=== PATIENT | male | born 1955 | race Caucasian/White ===

== ENCOUNTER 2020-06-20 12:38 | Outpatient (REF) | payer MEDICARE, OTHER, SELFPAY ==
[2020-06-20 13:47] LABS: Creatinine Urine 131.46 mg/dL; Microalbum/Creatinine Ratio Ur 5.3 ug/mg cr
== END 2020-06-20 12:39 | disposition home or self-care (01) ==
LOC: HO.LNP 12:38
PROVIDERS: Visit Provider Family Medicine
DX: I10 Essential (primary) hypertension (principal)
CPT/HCPCS: 82043

== ENCOUNTER 2020-08-10 09:15 | Outpatient (REF) | payer MEDICARE, OTHER, SELFPAY ==
[2020-08-10 11:41] LABS: Prostate Specific Antigen 2.71 ng/mL (<0.05-4.0)
== END 2020-08-10 09:16 | disposition home or self-care (01) ==
LOC: HO.WFDLDS 09:15
PROVIDERS: PCP Family Medicine; Visit Provider Physician Assistant
DX: C61 Malignant neoplasm of prostate (principal); Z12.5 Encounter for screening for malignant neoplasm of prostate
CPT/HCPCS: 36415; 84153

== ENCOUNTER 2020-09-05 14:32 | Outpatient (REF) | payer MEDICARE, OTHER, SELFPAY ==
[2020-09-05 15:17] LABS: Creatinine Urine 124.19 mg/dL; Microalbum/Creatinine Ratio Ur 5.6 ug/mg cr
== END 2020-09-05 14:33 | disposition home or self-care (01) ==
LOC: HO.LNP 14:32
PROVIDERS: Visit Provider Family Medicine
DX: I10 Essential (primary) hypertension (principal)
CPT/HCPCS: 82043

== ENCOUNTER 2020-09-19 08:32 | Day surgery (SDC) | payer MEDICARE, OTHER, SELFPAY ==
[2020-09-11 18:21] VITALS: BMI 25.7
--- NOTE | 2020-09-18 08:59 | HO.ANESPROP2 ---
Documented by User: Jagruti Jessika 09/18/20 09:00 HPI - Anesthesia Eval Consult details Narrative: 65yo M for Colonoscopy PMFSH Active Problems Active Problems: All Active Problems (Updated 09/11/20 @ 18:24 by Kathy Wolfe RN) Essential hypertension (Acute) Hypothyroidism (acquired) (Acute) Screening for colon cancer (Acute) Adult general medical exam (Acute) Chronic back pain (Acute) Chronic headaches (Acute) Elevated PSA (Acute) Past Medical History Medical History Back pain Elevated PSA HTN (hypertension) Hypercholesteremia Hypothyroid Family History Family History Father Throat cancer Mother No problems noted. Brother No problems noted. Sister Lung cancer Sister No problems noted. Son No problems noted. Son No problems noted. Surgical History Surgical History History of colonoscopy History of elbow surgery History of surgery [place] teeth removed Social History Social History Smoking Status: Never smoker Use of substances other than those prescribed or required for medical reasons: Yes Substance Use Frequency: Weekly Advance Directives: No Advance Directives Information Provided: No Advance Directives on File: No Meds Allergies Allergy/AdvReac Type Severity Reaction Status Date / Time bee pollen [BEE STINGS] Allergy Unknown Shortness Verified 09/11/20 18:21 of Breath Home Medications Medication Instructions Recorded Confirmed Last Taken Type diphth,pertus(acell),tetanus 2.5 0.5 ml IM DIRECTED 06/20/20 09/11/20 Unknown History Lf unit-8 mcg-5 Lf/0.5mL IM syringe epinephrine 0.3 mg/0.3 mL 0.3 mg IM ONCE PRN 06/20/20 09/11/20 Unknown History injection, auto-injector finasteride 5 mg tablet 5 mg PO DAILY 06/20/20 09/11/20 Unknown History flu vacc 2020-(63yr 0.5 ml IM DIRECTED 06/20/20 09/11/20 Unknown History up)-MF59C(PF) 60 mcg(15 mcgx4)/0.5 mL IM syringe levothyroxine 25 mcg tablet 25 mcg PO DAILY 06/20/20 09/11/20 Unknown History lisinopril 5 mg tablet 5 mg PO DAILY 06/20/20 09/11/20 09/19/20 History montelukast 10 mg tablet 10 mg PO DAILY 06/20/20 09/11/20 Unknown History tamsulosin 0.4 mg capsule 0.4 mg PO DAILY 06/20/20 09/11/20 Unknown History varicella-zoster glycoE vacc-AS01B 0.5 ml IM DIRECTED 06/20/20 09/11/20 Unknown History adj(PF) 50 mcg/0.5 mL IM susp, kit Exam Exam Date and Time: September 18, 2020 0859 Height,Weight and Vital Signs: Height 6 ft Weight 86.183 kg Assessment and Plan Assessment Anesthesia Assessment: Chart Reviewed Documented by User: Medina Lyons 09/19/20 09:46 PMFSH Past Medical History Medical History Back pain Elevated PSA HTN (hypertension) Hypercholesteremia Hypothyroid Family History Family History Father Throat cancer Mother No problems noted. Brother No problems noted. Sister Lung cancer Sister No problems noted. Son No problems noted. Son No problems noted. Surgical History Surgical History History of colonoscopy History of elbow surgery History of surgery [place] teeth removed Social History Social History Smoking Status: Never smoker Use of substances other than those prescribed or required for medical reasons: Yes Substance Use Frequency: Weekly Advance Directives: No Advance Directives Information Provided: No Advance Directives on File: No Meds Allergies Allergy/AdvReac Type Severity Reaction Status Date / Time bee pollen [BEE STINGS] Allergy Unknown Shortness Verified 09/11/20 18:21 of Breath Home Medications Medication Instructions Recorded Confirmed Last Taken Type diphth,pertus(acell),tetanus 2.5 0.5 ml IM DIRECTED 06/20/20 09/11/20 Unknown History Lf unit-8 mcg-5 Lf/0.5mL IM syringe epinephrine 0.3 mg/0.3 mL 0.3 mg IM ONCE PRN 06/20/20 09/11/20 Unknown History injection, auto-injector finasteride 5 mg tablet 5 mg PO DAILY 06/20/20 09/11/20 Unknown History flu vacc 2020-21(63yr 0.5 ml IM DIRECTED 06/20/20 09/11/20 Unknown History up)-MF59C(PF) 60 mcg(15 mcgx4)/0.5 mL IM syringe levothyroxine 25 mcg tablet 25 mcg PO DAILY 06/20/20 09/11/20 Unknown History lisinopril 5 mg tablet 5 mg PO DAILY 06/20/20 09/11/20 09/19/20 History montelukast 10 mg tablet 10 mg PO DAILY 06/20/20 09/11/20 Unknown History tamsulosin 0.4 mg capsule 0.4 mg PO DAILY 06/20/20 09/11/20 Unknown History varicella-zoster glycoE vacc-AS01B 0.5 ml IM DIRECTED 06/20/20 09/11/20 Unknown History adj(PF) 50 mcg/0.5 mL IM susp, kit Exam Airway Mallampati Class: II TM Dist: >3cm Neck ROM: Full Loose/Missing/Broken Teeth: No Heart: RRR Lungs: CTA Assessment and Plan Assessment Anesthesia Assessment: Anesthesia Plan Discussed and Chart Reviewed Final Anesthetic Review NPO: Yes ASA Class: II Final Preanesthetic Review: Meds/Allgs Chart Reviewed, Consent Obtained/Reviewed and Anes Risks/Benef Reviewed Patient Risk: Low Procedure Risk: Low Anesthetic Plan Anesthetic Plan: MAC: Disposition: Standard PACU
[2020-09-19 09:05] VITALS: BP 126/71; PULSE 72; RESP 16; TEMP 36.7; O2SAT 99
[2020-09-19] MEDS: Lactated Ringers 1,000 ML 100 ML IVCONT (09:38)
[2020-09-19 11:04] VITALS: BP 95/55; PULSE 84; RESP 12; TEMP 36.3; O2SAT 99
--- NOTE | 2020-09-19 11:04 | PM.OP ---
Brief Operative Note Date of Service: 09/19/20 Pre-op diagnosis: Screening Post-op diagnosis: other (Colon polyps) Procedure: Colonoscopy to the cecum with snare polypectomy and biopsy and removal of polyp Surgeon: Az Parrish Anesthesia: MAC Estimated blood loss (mL): 3.0 Pathology: other (A. Proximal ascending colon B. Polyp at 30cm C. Rectal polyp) Condition: stable Disposition: PACU
[2020-09-19 11:23] VITALS: BP 108/65; PULSE 68; RESP 18; TEMP 36.3; O2SAT 98
--- NOTE | 2020-09-19 11:38 | OP_ITS ---
SURGEON: Az Parrish MD INDICATIONS: The patient presents for evaluation of colorectal cancer screening and personal history of tubular adenoma of the colon. Full consent was obtained from him for this, including risks of bleeding and perforation. PREOPERATIVE DIAGNOSIS: POSTOPERATIVE DIAGNOSIS: PROCEDURE PERFORMED: Colonoscopy to cecum with snare polypectomy and biopsy and removal of polyp. ESTIMATED BLOOD LOSS: COMPLICATIONS: ANESTHESIA: Prep medication used, monitored anesthesia care. ASSISTANTS: SPECIMENS: PREOPERATIVE DIAGNOSES: Colorectal cancer screening and personal history of tubular adenoma of the colon. POSTOPERATIVE DIAGNOSES: Colorectal cancer screening, personal history of tubular adenoma of the colon, colon polyps, diverticulosis, and internal hemorrhoids. DESCRIPTION OF PROCEDURE: The patient was placed in the left lateral decubitus position. The digital rectal exam revealed no abnormalities. The Olympus video pediatric colonoscope was entered into the rectum and advanced easily to the cecum. Once in the cecum, I did identify normal-appearing cecal pouch with appendiceal orifice and a normal-appearing ileocecal valve. The entire cecum and ileocecal valve appeared normal. There was transillumination of light deep in the right lower quadrant. The scope was then slowly withdrawn assessing all mucosal surfaces carefully. Preparation was excellent. In the proximal ascending colon, was an approximately 8 mm to 10 mm polyp, which was snared and recovered by suction. The polypectomy site appeared clean, without any sign of residual polyp nor bleeding. At 30 cm, was an approximately 8 mm polyp, which was snared and recovered by suction. The polypectomy site appeared clean, without any sign of residual polyp nor bleeding. In the rectum, was an approximately 3 mm polyp, which was biopsied and completely removed with a cold biopsy forceps. I did not visualize any other polyps, colitis, nor angiodysplasia. There was a mild amount of sigmoid diverticulosis. In the rectum, scope was retroflexed visualizing small internal hemorrhoids, but no other pathology. The rectal mucosa appeared normal. The scope was straightened out and withdrawn from the patient. He tolerated the procedure well and was returned to the recovery area in stable condition. IMPRESSION: 1. Colon polyps, status post snare polypectomy and biopsy removal. 2. Diverticulosis. 3. Internal hemorrhoids. PLAN: The results of the pathology will be checked. I would recommend a repeat colonoscopy in 5 years for further screening. He was advised not to use any aspirin or NSAIDs for 1 week. MD ANOOP Amezquita/WILBER / [id number]
== END 2020-09-19 12:00 | disposition home or self-care (01) ==
PROVIDERS: PCP Family Medicine; Visit Provider Internal Medicine
PROC: 0DJD8ZZ Inspection of Lower Intestinal Tract, Via Natural or Artificial Opening Endoscopic (ICD-10-PCS; CPT 45378; principal; 2020-09-19 09:50)
DX: Z12.11 Encounter for screening for malignant neoplasm of colon (principal); Z86.010 Personal history of colon polyps; D12.2 Benign neoplasm of ascending colon; D12.8 Benign neoplasm of rectum; K63.5 Polyp of colon; K57.30 Diverticulosis of large intestine without perforation or abscess without bleeding; K64.8 Other hemorrhoids; I10 Essential (primary) hypertension; R97.20 Elevated prostate specific antigen [PSA]; Z79.899 Other long term (current) drug therapy
CPT/HCPCS: 45385; 45380; 88305

== ENCOUNTER 2020-12-05 10:20 | Outpatient (REF) | payer MEDICARE, OTHER, SELFPAY ==
[2020-12-05 13:58] LABS: Anion Gap 12 (12-20); Blood Urea Nitrogen 22 mg/dL (9-16); Calcium 9.2 mg/dL (8.4-10.2); Carbon Dioxide 30 mmol/L (22-29); Chloride 103 mmol/L (96-108); Estimated Glomerular Filt Rate > 60; Glucose Random 96 mg/dL (60-115); Potassium 4.4 mmol/L (3.3-5.1); Sodium 141 mmol/L (135-145)
== END 2020-12-05 10:21 | disposition home or self-care (01) ==
LOC: HO.WFDLDS 10:20
PROVIDERS: Visit Provider Family Medicine
DX: Z00.00 Encounter for general adult medical examination without abnormal findings (principal)
CPT/HCPCS: 36415; 80048

== ENCOUNTER 2021-01-05 10:15 | Emergency (ER) | payer MEDICARE, OTHER, SELFPAY ==
--- NOTE | ~2021-01-05 | US_ITS ---
EXAMINATION: US VENOUS ULTRASOUND WITH DOPPLER LOWER EXTREMITY, RIGHT CLINICAL INFORMATION: Atraumatic right thigh pain and redness. COMPARISON: None TECHNIQUE: Ultrasound of the deep veins is performed from the hip to the calf with compression sonography and color and pulse Doppler assessment. Spectral analysis with color-flow imaging is performed. FINDINGS: There is normal venous compression and respiratory variation and augmented flow. The visualized common femoral vein, superficial femoral vein, profunda femoral vein, popliteal vein, and the trifurcation region shows no evidence of deep venous thrombosis. There is no significant popliteal fossa cyst. Positive superficial occlusive thrombus is seen in the right greater saphenous vein from the level of the saphenofemoral junction to the distal thigh. US/US venous duplex LE RT IMPRESSION: 1. No evidence of deep venous thrombosis in the visualized veins of the right lower extremity. 2. Positive occlusive thrombus in the right greater saphenous vein. There is some echogenic, components suggesting chronic thrombus. The patient does have history of previous greater saphenous venoseal. Correlate with patient history.
[2021-01-05 10:37] VITALS: BP 140/73; PULSE 60; RESP 18; TEMP 36.5; O2SAT 96; BMI 25.5
--- NOTE | 2021-01-05 11:27 | ED.SKABFB ---
HPI - Skin/Abscess/Foreign Bdy General Chief complaint: Extremity Problem Stated complaint: flobitis Time Seen by Provider: 01/05/21 10:37 Source: patient Mode of arrival: ambulatory Limitations: no limitations History of Present Illness HPI narrative: 65-year-old male with a past medical history of hypertension, hypercholesterolemia, hypothyroidism, elevated PSA, chronic headaches and back pain presenting to the ED with complaints of redness to right upper inner thigh for the past 4 days worse today. Reports recently he has been gardening. Reports he was seen at the [facility] and was referred here for an ultrasound to rule out DVT. MD complaint: other (Erythema to right inner thigh) Onset (ago): day(s) (Four days) Tetanus up to date: unsure Location: [facility] Severity: mild Severity scale (1-10): 1 Quality: aching Pain Consistency: constant Relieving factors: none Exacerbating factors: palpation Context: none Associated symptoms: denies other symptoms Treatments prior to arrival: none Related Data Home Medications Medication Instructions Recorded Confirmed diphth,pertus(acell),tetanus 2.5 0.5 ml IM DIRECTED 06/20/20 09/11/20 Lf unit-8 mcg-5 Lf/0.5mL IM syringe epinephrine 0.3 mg/0.3 mL 0.3 mg IM ONCE PRN 06/20/20 09/11/20 injection, auto-injector finasteride 5 mg tablet 5 mg PO DAILY 06/20/20 09/11/20 flu vacc 2020-21(63yr 0.5 ml IM DIRECTED 06/20/20 09/11/20 up)-MF59C(PF) 60 mcg(15 mcgx4)/0.5 mL IM syringe montelukast 10 mg tablet 10 mg PO DAILY 06/20/20 09/11/20 varicella-zoster glycoE vacc-AS01B 0.5 ml IM DIRECTED 06/20/20 09/11/20 adj(PF) 50 mcg/0.5 mL IM susp, kit Previous Rx's Medication Instructions Recorded hydrocodone 5 mg-acetaminophen 325 1 tab PO BEDTIME PRN 30 Days #10 06/28/20 mg tablet tab topiramate 50 mg tablet 50 mg PO DAILY 30 Days #30 tab 09/05/20 tamsulosin 0.4 mg capsule 0.8 mg PO BEDTIME #90 cap 10/19/20 levothyroxine 25 mcg tablet 25 mcg PO DAILY #90 tab 11/05/20 butalbital 50 mg-acetaminophen 325 1 tab PO .Once per day PRN 30 Days 12/05/20 mg tablet #10 tab lisinopril 5 mg tablet 5 mg PO DAILY 90 Days #90 tab 12/05/20 cephalexin 500 mg PO BID 10 Days #20 cap 01/05/21 comp.stocking,thigh,long,large #2 ea 01/05/21 doxycycline hyclate 100 mg PO BID 10 Days #20 tab 01/05/21 Allergies Allergy/AdvReac Type Severity Reaction Status Date / Time bee pollen [BEE STINGS] Allergy Unknown Shortness Verified 01/05/21 10:37 of Breath Review of Systems Review of Systems: Constitutional : No Weight loss, No Fever, No Chills, No Night Sweats, No Fatigue, NoMalaise ENT/Mouth: No ear pain, No sore throat, No Difficulty swallowing Cardiovascular : No Chest Pain, No SOB, No Dyspnea on Exertion, No Orthopnea, NoEdema, No Palpitations Respiratory : No Cough, No Sputum, No Wheezing, No Dyspnea Gastrointestinal : No Nausea, No Vomiting, No abdominal pain, No Diarrhea, No blood streaked emesis, No coffee-ground emesis, No gross hematemesis, No blood streak stool, No gross hematochezia, No Melena Genitourinary : No irregular bleeding, No Dysuria, No Urinary Frequency, No Hematuria,No Urinary Incontinence, No Urgency, No Flank Pain Musculoskeletal : No joint pain, No Myalgias, No Joint Swelling Skin : Positive erythema to right inner thigh, No Skin Lesions, No rash Neuro : No Weakness, No Numbness, No Paresthesias, No Loss of Consciousness, NoDizziness, No Headache Psych : No Social Issues, Heme/Lymph: No Bruising, No Bleeding,No Lymphadenopathy Endocrine : No Polyuria, No Polydipsia, No Temperature Intolerance Yes all other systems are reviewed and are negative [facility] Past Medical History Attestation statement: The following information was validated with the patient. Medical History Back pain Elevated PSA HTN (hypertension) Hypercholesteremia Hypothyroid Surgical History History of colonoscopy History of elbow surgery History of surgery [place] teeth removed Family History Family History Father Throat cancer Mother Cancer of anus Brother Lung cancer Prostate cancer Sister Lung cancer Sister No problems noted. Son No problems noted. Son No problems noted. Social History Social History Advance Directives: No Advance Directives Information Provided: No Physical Exam Vital Signs: Vital Signs: Last Vital Signs Temp 97.7 F 01/05/21 10:37 Pulse 60 01/05/21 10:37 Resp 18 01/05/21 10:37 BP 140/73 H 01/05/21 10:37 Pulse Ox 96 01/05/21 10:37 Body Mass Index 25.5 vital signs have been reviewed as normal and appeared to be correct. Blood pressure normal. Heart rate normal. Respiration rate normal. Temperature normal. Oxygen saturation normal. Appearance: Alert. Oriented X3. No acute distress. Head: Normal external exam. Normocephalic. Atraumatic. Eyes: PERRLA. EOMI. Conjunctiva and sclera normal. Eyelids normal. ENT: Pharynx normal. Uvula midline. Moist mucous membranes. Neck: Normal inspection. Neck supple. FROM. No adenopathy. Thyroid Normal. No meningeal signs. No neck mass noted. CVS: Normal heart rate and rhythm. Heart sound normal. Pulses normal throughout. No murmurs/rales/gallops. Respiratory: No respiratory distress. Painless inspiration. Breath sounds normal. No wheezes/rales/rhonchi noted. Chest nontender. No accessory muscle usage noted or decreased air movement noted. Back: Full range of motion noted. No rashes/lesion/induration/fluctuance or signs of infection noted. Skin: To right medial thigh patient has a circular erythematous macular area that is tender to palpation and warm to touch. The rest of the Skin is warm and dry. Normal skin color. Normal skin turgor. No rashes/lesions/lacerations noted. Extremities: No lower extremity edema. No calf tenderness is noted. Extremities exhibit normal range of motion. Extremities nontender. Neuro: Oriented X 3. No motor deficit. No sensory deficit. Reflexes normal. Normal steady gait. No focal neuro deficits noted. Vascular: + radial pulses/+ 2 distal pedal pulses/+2 dorsalis pedis b/l. Normal cap refill. No cyanosis noted to upper extremity nails and lower extremity toes nails. Course Course Course Narrative: 10:50am - 65-year-old male with a past medical history of hypertension, hypercholesterolemia, hypothyroidism, elevated PSA, chronic headaches and back pain presenting to the ED with complaints of redness to right upper inner thigh for the past 4 days worse today. Reports recently he has been gardening. Reports he was seen at the [facility] and was referred here for an ultrasound to rule out DVT. Plan: Ultrasound of right lower extremity to evaluate for possible DVT if negative will DC home with antibiotic for cellulitis infection instructions to return if any new or worsening symptoms follow-up with primary care provider. Patient understands agrees with this plan. Reevaluation(s) Reevaluation #1: - ultrasound of right lower extremity revealed positive occlusive thrombosis in the right greater saphenous vein which may be chronic. No evidence of a DVT. Therefore explained to the patient that I want to treat him for a cellulitic infection due to he reports he was gardening and thought he had a bite and that he should also apply warm compresses and have a repeat ultrasound in 7-10 days by his PCP or Dr. Lazar the vascular surgeon. I gave a copy of the ultrasound results to the patient he understands agrees with this plan. Instructions to return if any new or worsening symptoms. Time: 13:46 MDM - Skin/Abscess/Foreign Bdy Medical Records Attestation: I reviewed the patient's medical records. Imaging Data Venous Doppler of right lower extremity: Attestation: I personally reviewed and interpreted this imaging study as follows: Radiologist's impression: FINDINGS: There is normal venous compression and respiratory variation and augmented flow. The visualized common femoral vein, superficial femoral vein, profunda femoral vein, popliteal vein, and the trifurcation region shows no evidence of deep venous thrombosis. There is no significant popliteal fossa cyst. Positive superficial occlusive thrombus is seen in the right greater saphenous vein from the level of the saphenofemoral junction to the distal thigh. US/US venous duplex LE RT IMPRESSION: 1. No evidence of deep venous thrombosis in the visualized veins of the right lower extremity. 2. Positive occlusive thrombus in the right greater saphenous vein. There is some echogenic, components suggesting chronic thrombus. The patient does have history of previous greater saphenous venoseal. Correlate with patient history. Discharge Plan Discharge Clinical Impression: Thrombosis of right saphenous vein, Cellulitis Patient Disposition: Home, Self-Care Instructions: Cellulitis (ED), Superficial Thrombophlebitis (ED) Additional Instructions: We are placing you on antibiotics for a possible skin infection although you should have a repeat ultrasound in 7-10 days by your PCP or Dr. Lazar the vascular surgeon. Return if any new or worsening symptoms. Please apply warm compresses Prescriptions: New doxycycline hyclate 100 mg tablet 100 mg PO BID 10 Days Qty: 20 RF: 0 cephalexin 500 mg capsule 500 mg PO BID 10 Days Qty: 20 RF: 0 (DME) comp.stocking,thigh,long,large Misc See Rx Instructions .ROUTE .MEDSUPPLY Qty: 2 RF: 0 No Action hydrocodone-acetaminophen 5-325 mg tablet 1 tab PO BEDTIME PRN (Reason: pain) 30 Days Qty: 10 RF: 0 tamsulosin 0.4 mg capsule 0.8 mg PO BEDTIME Qty: 90 RF: 1 levothyroxine [Synthroid] 25 mcg tablet 25 mcg PO DAILY Qty: 90 RF: 2 lisinopril 5 mg tablet 5 mg PO DAILY 90 Days Qty: 90 RF: 3 butalbital-acetaminophen 50-325 mg tablet 1 tab PO .Once per day PRN (Reason: headache) 30 Days Qty: 10 RF: 1 montelukast 10 mg tablet 10 mg PO DAILY RF: 0 Fluad Quad 2020-21(65y up)(PF) 60 mcg (15 mcg x 4)/0.5 mL syringe 0.5 ml IM DIRECTED RF: 0 Boostrix Tdap 2.5-8-5 Lf-mcg-Lf/0.5mL syringe 0.5 ml IM DIRECTED RF: 0 finasteride 5 mg tablet 5 mg PO DAILY RF: 0 Shingrix (PF) 50 mcg/0.5 mL suspension for reconstitution 0.5 ml IM DIRECTED RF: 0 epinephrine 0.3 mg/0.3 mL auto-injector 0.3 mg IM ONCE PRN (Reason: Allergic Reaction) RF: 0 topiramate 50 mg tablet 50 mg PO DAILY 30 Days Qty: 30 RF: 2 Referrals: Gabriele Joiner MD [Primary Care Provider] - 2 days Ananda Lazar MD [Physician] - 2 days Print Language: Latvian
== END 2021-01-05 14:11 | disposition home or self-care (01) ==
PROVIDERS: Emergency Provider Emergency Medicine Emergency Medical Services; PCP Family Medicine
DX: I82.811 Embolism and thrombosis of superficial veins of right lower extremity (principal); L03.115 Cellulitis of right lower limb; R60.0 Localized edema; I10 Essential (primary) hypertension; Z79.899 Other long term (current) drug therapy
CPT/HCPCS: 93971; 99283

== ENCOUNTER → 2021-01-15 10:08 | Outpatient (BNVA) | payer MEDICARE, OTHER, SELFPAY | PROVIDERS: PCP Family Medicine; Visit Provider Surgery Vascular Surgery | DX: I83.11 Varicose veins of right lower extremity with inflammation (principal) | CPT/HCPCS: 99212 ==

== ENCOUNTER → 2021-02-01 10:00 | Outpatient (BNVA) | payer MEDICARE, OTHER, SELFPAY | PROVIDERS: PCP Family Medicine; Visit Provider Surgery Vascular Surgery | DX: I83.11 Varicose veins of right lower extremity with inflammation (principal) | CPT/HCPCS: 37765 ==

== ENCOUNTER → 2021-02-12 09:11 | Outpatient (BNVA) | payer MEDICARE, OTHER, SELFPAY | PROVIDERS: PCP Family Medicine; Visit Provider Surgery Vascular Surgery | DX: I83.11 Varicose veins of right lower extremity with inflammation (principal) | CPT/HCPCS: 99212 ==

== ENCOUNTER 2021-03-26 08:32 | Outpatient (REF) | payer MEDICARE, OTHER, SELFPAY ==
--- NOTE | 2021-03-26 13:11 | MHC.AU.ANR ---
Adult Audiological Evaluation Date of Visit: 03/26/21 Reason for Appointment: Audiological re-evaluation to monitor the status of Mr. Moody's hearing loss. He was previously seen here and diagnosed with a bilateral, high-frequency, sensorineural hearing loss. His hearing in the right ear is better than the left. He was considered a borderline candidate for amplification and deferred hearing aids at that time. He notes some difficulties understanding speech. Mr. Moody denies any significant changes to his hearing or medical history since his last visit. Does patient feel they have a hearing loss?: Yes If Yes, Which Ear?: Both Ears Has hearing been tested previously?: Yes [place] [facility] [place] hearing sloping to a mild to moderate sensorineural hearing loss bilaterally. Ear History: Bothersome Tinnitus/Ringing/Noises in Ears: Both Ears Medical History: Medical History: Prostate cancer, hypothyroid, migraines Otoscopy: Right Ear: Unremarkable Left Ear: Unremarkable Tympanometry: Tympanometry performed due to: To assess integrity of the middle ear system Right Ear: Hypercompliant Middle Ear System (Type Ad) Left Ear: Hypercompliant Middle Ear System (Type Ad) Hearing Evaluation: Transducer(s) Used: Insert Earphones, Bone Conduction Method: Conventional Audiometry Stimuli Used: Pure Tones Right Ear: Description of Hearing: Normal hearing from 250-1000 Hz, sloping to a mild to moderately-severe sensorineural hearing loss from 5474-4625 Hz. Left Ear: Description of Hearing: Normal hearing from 250-1000 Hz, sloping to a mild to moderately-severe sensorineural hearing loss from 6382-9141 Hz. Hearing in the left ear is worse than the right ear by 10 dBHL at 2000 Hz and 20 dBHL at 4000 Hz. Speech Recognition Threshold (SRT): Method Used: Monitored Live Voice Stimuli Used: Spondee Words Right Ear: 15 dBHL Left Ear: 15 dBHL Word Discrimination: Method: Recorded Lists Word Lists Used: NU-6 Right Ear: 96% at 60 dBHL Left Ear: 100% at 60 dBHL Comparison: Compared to the most recent evaluation: Slight decrease in hearing for high-frequencies bilaterally. Recommendations: Audiological re-evaluation in one year. Discussed hearing aid candidacy and advised that he continues to be a borderline candidate for hearing aids. He chose to defer hearing aids at this time. Diagnosis: Primary Diagnosis: H90.3 Bilateral Sensorineural Hearing Loss Secondary Diagnosis: H93.13 Tinnitus, Bilateral Services Performed: Services Performed: Comprehensive Audiological Evaluation (CPT 53334) Tympanometry (CPT 30914) Signature: Provider: Donis Prakash, CCC-A
== END 2021-03-26 08:33 | disposition home or self-care (01) ==
LOC: HO.SH 08:32
PROVIDERS: Visit Provider Family Medicine
DX: H90.3 Sensorineural hearing loss, bilateral (principal); H93.13 Tinnitus, bilateral
CPT/HCPCS: 92557; 92567

== ENCOUNTER 2021-06-03 12:18 | Outpatient (REF) | payer MEDICARE, OTHER, SELFPAY ==
[2021-06-03 14:49] LABS: Prostate Specific Antigen 1.68 ng/mL (<0.05-4.0)
== END 2021-06-03 12:19 | disposition home or self-care (01) ==
LOC: HO.WFDLDS 12:18
PROVIDERS: Visit Provider Physician Assistant Surgical
DX: Z12.5 Encounter for screening for malignant neoplasm of prostate (principal); C61 Malignant neoplasm of prostate
CPT/HCPCS: 36415; 84153

== ENCOUNTER 2021-07-03 08:50 | Outpatient (REF) | payer MEDICARE, OTHER, SELFPAY ==
[2021-07-03 11:44] LABS: Alanine Aminotransferase 21 U/L (0-40); Albumin Level 4.1 g/dL (3.5-5.0); Alkaline Phosphatase 68 U/L (39-117); Anion Gap 9 (12-20); Aspartate Amino Transferase 22 U/L (5-37); Bilirubin Total 0.5 mg/dL (0.0-1.0); Blood Urea Nitrogen 18 mg/dL (9-16); Calcium 9.3 mg/dL (8.4-10.2); Carbon Dioxide 30 mmol/L (22-29); Chloride 105 mmol/L (96-108); Cholesterol 178 mg/dL; Estimated Glomerular Filt Rate > 60; Glucose Fasting 106 mg/dL (60-99); HDL Cholesterol 51 mg/dL; LDL Cholesterol Calculated 113 mg/dl; Potassium 4.3 mmol/L (3.3-5.1); Sodium 140 mmol/L (135-145); Total Protein 6.7 g/dL (6.5-8.0); Triglycerides 72 mg/dL
[2021-07-03 12:04] LABS: TSH reflex Free T4 6.58 uIU/mL (0.32-4.0)
[2021-07-03 12:46] LABS: Free T4 (Free Thyroxine) 0.89 ng/dL (0.71-1.85)
== END 2021-07-03 08:51 | disposition home or self-care (01) ==
LOC: HO.WFDLDS 08:50
PROVIDERS: PCP Family Medicine; Visit Provider Family Medicine
DX: Z00.00 Encounter for general adult medical examination without abnormal findings (principal)
CPT/HCPCS: 36415; 80053; 80061; 84439; 84443

== ENCOUNTER 2021-07-12 08:06 | Outpatient (REF) | payer MEDICARE, OTHER, SELFPAY ==
[2021-07-12 11:18] LABS: Free T4 (Free Thyroxine) 0.91 ng/dL (0.71-1.85); Thyroid Stimulating Hormone 4.68 uIU/mL (0.32-4.0)
[2021-07-12 13:58] LABS: Estimated Average Glucose 117 mg/dL; Hemoglobin A1c % 5.7 %
[2021-07-14 01:51] LABS: Triiodothyronine T3 Total 109 ng/dL (76-181)
== END 2021-07-12 08:07 | disposition home or self-care (01) ==
LOC: HO.WFDLDS 08:06
PROVIDERS: Visit Provider Family Medicine
DX: E03.9 Hypothyroidism, unspecified (principal); R79.89 Other specified abnormal findings of blood chemistry; R73.01 Impaired fasting glucose
CPT/HCPCS: 36415; 83036; 84439; 84443; 84480

== ENCOUNTER 2021-10-07 10:24 | Outpatient (REF) | payer MEDICARE, OTHER, SELFPAY ==
[2021-10-12 08:21] LABS: SARS COV2 IgG Negative (Negative)
== END 2021-10-07 10:25 | disposition home or self-care (01) ==
LOC: HO.WFDLDS 10:24
PROVIDERS: Visit Provider Family Medicine
DX: Z01.84 Encounter for antibody response examination (principal); Z86.19 Personal history of other infectious and parasitic diseases
CPT/HCPCS: 36415; 86769

== ENCOUNTER 2021-10-29 11:01 | Outpatient (REF) | payer MEDICARE, OTHER, SELFPAY ==
[2021-10-29 13:58] LABS: TSH reflex Free T4 3.55 uIU/mL (0.32-4.0)
== END 2021-10-29 11:02 | disposition home or self-care (01) ==
LOC: HO.WFDLDS 11:01
PROVIDERS: Visit Provider Family Medicine
DX: Z00.00 Encounter for general adult medical examination without abnormal findings (principal)
CPT/HCPCS: 36415; 84443

== ENCOUNTER 2021-11-15 10:37 | Outpatient (REF) | payer MEDICARE, OTHER, SELFPAY ==
[2021-11-16 06:21] LABS: SARS-COV-2 IgG Spike, Semi-Qnt >150.00 index (<1.00)
== END 2021-11-15 10:38 | disposition home or self-care (01) ==
LOC: HO.WFDLDS 10:37
PROVIDERS: Visit Provider Family Medicine
DX: Z20.822 Contact with and (suspected) exposure to COVID-19 (principal)
CPT/HCPCS: 36415; 86769

== ENCOUNTER 2022-04-23 16:55 | Outpatient (REF) | payer MEDICARE, OTHER, SELFPAY ==
--- NOTE | ~2022-04-23 | US_ITS ---
EXAMINATION: US VENOUS ULTRASOUND WITH DOPPLER LOWER EXTREMITY, RIGHT CLINICAL INFORMATION: Varicose veins COMPARISON: 01/05/2021 TECHNIQUE: Ultrasound of the deep veins is performed from the hip to the calf with compression sonography and color and pulse Doppler assessment. Spectral analysis with color-flow imaging is performed. FINDINGS: There is normal venous compression and respiratory variation and augmented flow. The visualized common femoral vein, superficial femoral vein, profunda femoral vein, popliteal vein, and the trifurcation region shows no evidence of deep venous thrombosis. There is no significant popliteal fossa cyst. 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 US/US venous duplex LE RT IMPRESSION: No DVT demonstrated in the right lower extremity.
== END 2022-04-23 16:56 | disposition home or self-care (01) ==
LOC: HO.US 16:55
PROVIDERS: PCP Family Medicine; Visit Provider Hospitalist
DX: I83.11 Varicose veins of right lower extremity with inflammation (principal)
CPT/HCPCS: 93971

== ENCOUNTER → 2022-05-05 14:41 | Outpatient (BNVA) | payer MEDICARE, OTHER, SELFPAY | PROVIDERS: PCP Family Medicine; Visit Provider Physician Assistant | DX: S86.111A Strain of other muscle(s) and tendon(s) of posterior muscle group at lower leg level, right leg, initial encounter (principal) | CPT/HCPCS: 99202 ==

== ENCOUNTER → 2022-06-16 08:52 | Outpatient (BNVA) | payer MEDICARE, OTHER, SELFPAY | PROVIDERS: PCP Family Medicine; Visit Provider Physician Assistant | DX: S86.111D Strain of other muscle(s) and tendon(s) of posterior muscle group at lower leg level, right leg, subsequent encounter (principal) | CPT/HCPCS: 99212 ==

== ENCOUNTER 2022-06-23 08:07 | Outpatient (REF) | payer MEDICARE, OTHER, SELFPAY ==
[2022-06-23 11:36] LABS: Appearance Urine Cloudy; Color Urine Yellow; Glucose Urine UA Negative (Negative); Leukocyte Esterase Urine Negative (Negative); Nitrite Urine Negative (Negative); PH 7.5 (5.0-9.0); Specific Gravity - Urine 1.015 (1.005-1.025); Urine Blood Negative (Negative); Urine Ketones Negative (Negative); Urine Protein Negative (Neg-Trace)
[2022-06-23 12:23] LABS: Alanine Aminotransferase 29 U/L (0-40); Albumin Level 4.1 g/dL (3.5-5.0); Alkaline Phosphatase 77 U/L (39-117); Anion Gap 10 (12-20); Aspartate Amino Transferase 23 U/L (5-37); Bilirubin Total 0.4 mg/dL (0.0-1.0); Blood Urea Nitrogen 22 mg/dL (9-16); Calcium 9.1 mg/dL (8.4-10.2); Carbon Dioxide 28 mmol/L (22-29); Chloride 105 mmol/L (96-108); Cholesterol 166 mg/dL; Estimated Glomerular Filt Rate > 60; Free T4 (Free Thyroxine) 0.92 ng/dL (0.71-1.85); Glucose Fasting 102 mg/dL (60-99); HDL Cholesterol 51 mg/dL; LDL Cholesterol Calculated 98 mg/dl; Potassium 3.9 mmol/L (3.3-5.1); Prostate Specific Antigen Scr 1.68 ng/mL (<0.05-4.0); Sodium 139 mmol/L (135-145); Thyroid Stimulating Hormone 4.88 uIU/mL (0.32-4.0); Total Protein 6.6 g/dL (6.5-8.0); Triglycerides 89 mg/dL
[2022-06-23 12:25] LABS: Microalbumin Urine < 5.0 mg/L
[2022-06-24 08:47] LABS: Triiodothyronine T3 Total 103 ng/dL (76-181)
== END 2022-06-23 08:08 | disposition home or self-care (01) ==
LOC: HO.WFDLDS 08:07
PROVIDERS: Visit Provider Family Medicine
DX: Z00.00 Encounter for general adult medical examination without abnormal findings (principal); Z12.5 Encounter for screening for malignant neoplasm of prostate; E03.9 Hypothyroidism, unspecified; I10 Essential (primary) hypertension
CPT/HCPCS: 36415; 80053; 80061; 81003; 82043; 84153; 84439; 84443; 84480

== ENCOUNTER 2022-10-13 09:37 | Outpatient (REF) | payer MEDICARE, OTHER, SELFPAY ==
[2022-10-13 12:35] LABS: Anion Gap 9 (12-20); Blood Urea Nitrogen 21 mg/dL (9-16); Calcium 8.5 mg/dL (8.4-10.2); Carbon Dioxide 29 mmol/L (22-29); Chloride 108 mmol/L (96-108); Estimated Glomerular Filt Rate > 60; Glucose Fasting 97 mg/dL (60-99); Potassium 4.3 mmol/L (3.3-5.1); Sodium 142 mmol/L (135-145)
[2022-10-13 12:55] LABS: Free T4 (Free Thyroxine) 0.91 ng/dL (0.71-1.85)
[2022-10-14 20:03] LABS: Triiodothyronine T3 Total 119 ng/dL (76-181)
== END 2022-10-13 09:38 | disposition home or self-care (01) ==
LOC: HO.WFDLDS 09:37
PROVIDERS: Visit Provider Family Medicine
DX: E78.00 Pure hypercholesterolemia, unspecified (principal); E03.9 Hypothyroidism, unspecified
CPT/HCPCS: 36415; 80048; 84439; 84443; 84480

== ENCOUNTER 2023-02-11 08:57 | Outpatient (AMB) | payer MEDICARE, OTHER, SELFPAY ==
[2023-02-11 09:00] VITALS: BP 122/76; PULSE 52; O2SAT 98; BMI 25.7
--- NOTE | 2023-02-11 09:00 | MHC.PC.OV ---
Vital Signs 02/11/23 09:00 Height 5 ft 11 in Weight 184 lb 8 oz BMI 25.7 BP 122/76 Blood Pressure Location Lt brachial Position Sitting Pulse 52 Pulse Source Pulse Oximeter Pulse Oximetry (%) 98 Oxygen Delivery Method Room Air Intake Visit Reasons: f/u HTN & PreDM Intake Note: Patient is here to follow up on hypertension and PreDM. Patient is having reaction to allergy shot on right arm. Allergies bee pollen [BEE STINGS] Allergy (Unknown, Verified 02/11/23 09:04) Shortness of Breath Medication List - Last Reconciled 02/11/23 by Gabriele Joiner MD butalbital-acetaminophen 50-325 mg 1 tab PO DAILY PRN 30 days comp.stocking,thigh,long,large As directed finasteride 5 mg PO DAILY levothyroxine (Synthroid) 37.5 mcg (1.5 x 25 mcg) PO DAILY 90 days lisinopril 5 mg PO DAILY 90 days montelukast 10 mg PO DAILY nirmatrelvir-ritonavir 300 mg (150 mg x 2)-100 mg (Paxlovid) take TWO 150 mg tablets of nirmatrelvir with ONE 100 mg tablet of ritonavir twice daily for 5 days PO tamsulosin 0.8 mg (2 x 0.4 mg) PO BEDTIME topiramate 25 mg PO DAILY 30 days tramadol 50 mg PO BID PRN 7 days Tobacco use date assessed: 02/11/23 Fall risk assessment: No Falls in past year Last assessed Fall Risk: 02/11/23 Dental Screening Dental Screen Date: 02/11/23 Did you have a dental visit in the last 12 months?: Yes Did you have a dental problem in the last 6 months where you did not have access to dental care?: No Was dental information given to patient?: No HPI f/u HTN & PreDM HPI Details 67 y/o male presents to f/u hypertension, hypothyroidism and pre-diabetes. Last A1c 10/13/22 was 5.7%. Had advised lifestyle changes. A1c today 02/11/23 is 5.7%. Blood pressure today is 122/76. He is on lisinopril 5mg daily. No recent labs to review for his thyroid levels. His thyroid levels were fine in October. He reports reactions to an allergy shot on his R arm. HPI Comments History of Present Illness Details Documentation assistance for Gabriele Joiner MD, was provided by Kristian Rivas,? Yarding Supervisor on 02/11/2023 9:35 AM EST. I, Dr. Joiner, have read, observed, and verified documentation.? [facility], [facility] Medical History Back pain Elevated PSA HTN (hypertension) Hypercholesteremia Hypothyroid Surgical History History of colonoscopy History of elbow surgery History of surgery [place] teeth removed Family History Father Throat cancer Mother Cancer of anus Brother Lung cancer Prostate cancer Sister Lung cancer Sister No problems noted. Son No problems noted. Son No problems noted. Other Mental health disorder Substance use disorder Social History Housing: House Alcohol intake: current Alcohol intake frequency: holidays/special occasions only Patient Tobacco Use Status: Former Tobacco user e-Cigarette/Vaping Use: Never Used Second Hand Smoke Exposure: No service: No Current occupational status: retired Current occupational exposures/hazards: No Cognitive needs: No Hearing needs: No Vision needs: Yes (Glasses) Questionnaire PHQ-9 Over the last 2 weeks, how often have you been bothered by any of the following problems? 1. Little interest or pleasure in doing things: not at all 2. Feeling down, depressed, or hopeless: not at all 3. Trouble falling or staying asleep, or sleeping too much: not at all 4. Feeling tired or having little energy: not at all 5. Poor appetite or overeating: not at all 6. Feeling bad about yourself - or that you are a failure or have let yourself or your family down: not at all 7. Trouble concentrating on things, such as reading the newspaper or watching television: not at all 8. Moving or speaking so slowly that other people could have noticed. Or the opposite - being so fidgety or restless that you have been moving around a lot more than usual: not at all 9. Thoughts that you would be better off or of hurting yourself in some way: not at all Total score: 0 Depression Screening Interpretation: Negative Source: Developed by Drs. Az Posada, Karen Sexton, Brandin Gomes and colleagues, with an educational rebecca from [employer]. Thrive Questionnaire Date Thrive assessed: 08/14/22 SY-7 AMB Questionnaire SY-7 Date SY - 7 assessed: 04/03/22 Source: Developed by Drs. Az Posada, Karen Sexton, Brandin Gomes and colleagues, with an educational rebecca from [employer]. Review of Systems Const Denies chills, Denies fatigue, Denies fever(s), Denies headache(s) and Denies weakness ENT Denies dizziness and Denies headache(s) Card Denies chest pain, Denies lightheadedness, Denies dyspnea and Denies other (Palpitations) Resp Denies cough, Denies dyspnea, Denies wheezing and Denies other ( shortness of breath) Musc Denies numbness and Denies tingling Neuro Denies dizziness, Denies headache(s), Denies numbness, Denies tingling, Denies paresthesias and Denies weakness Psych Denies anxiety and Denies depression Endo Denies fatigue Aller/Immun Denies wheezing Physical exam (Primary Care) Vital Signs: Last Vital Signs Pulse 52 02/11/23 09:00 BP 122/76 02/11/23 09:00 Pulse Ox 98 02/11/23 09:00 Oxygen Delivery Method Room Air 02/11/23 09:00 BMI result Body Mass Index 25.7 Tobacco/Smoking Status: Tobacco use Status Tobacco use date assessed 02/11/23 02/11/23 09:07 Patient Tobacco Use Status Former Tobacco user 02/11/23 09:03 e-Cigarette/Vaping Use Never Used 02/11/23 09:03 PHQ-9: PHQ-9 Score PHQ-9: Total score 0 02/11/23 09:38 Depression Screening Interpretation: Negative Thrive Assessment: Date of Thrive Assessment Date Thrive assessed 08/14/22 02/11/23 09:03 Const General: no acute distress and well developed Nutritional Appearance: well nourished Orientation/consciousness: patient oriented x3 HENMT Head: Yes normocephalic and Yes atraumatic Eyes General: appearance normal, both eyes and all related structures Pupils: Equal, round and reactive pupils present EOM: EOMs intact bilaterally Resp Effort & Inspection: normal respiratory effort Auscultation: clear to auscultation bilaterally Cardio Rate: regular rate Rhythm: regular rhythm Heart sounds: S1 normal heart sound present, S2 normal heart sound present, no gallops, no murmurs and no rubs Neuro General: patient oriented x3 and gait normal Cranial nerves: Yes Equal, round and reactive pupils present Psych Affect: normal affect Results AMB Hemoglobin A1c AMB Hemoglobin A1c 5.7 % Last Edit by Ne Vanegas on 02/11/23 09:53 Assessment and Plan Assessment & Plan (1) Essential hypertension: Code(s): I10 - Essential (primary) hypertension Plan: Blood pressure appears well controlled. Goal is less than 140/90 Continue current medication (2) Pre-diabetes: Code(s): R73.03 - Prediabetes Plan: A1c again 5.7% which is early pre diabetes Again advised lifestyle changes including a diet lower in sugars and starches Continue exercise and weight control (3) Allergy injection reaction: Code(s): T80.89XA - Other complications following infusion, transfusion and therapeutic injection, initial encounter; T45.0X5A - Adverse effect of antiallergic and antiemetic drugs, initial encounter Plan: Mild hives reaction after allergy shots. Use Benadryl Let conference services manager no so they can adjust therapy. Orders: Orders Thyroid Stimulating Hormone Today E03.9 - Hypothyroidism, unspecified Triiodothyronine T3 Total Today E03.9 - Hypothyroidism, unspecified Free T4 (Free Thyroxine) Today E03.9 - Hypothyroidism, unspecified Medications: New diphenhydramine HCl (Benadryl Allergy) 50 mg (2 x 25 mg) PO TID 3 days PRN 10 tabs 0RF allergy symptoms Coding Level of Care Code Est Pt Level 4 (21419) Diagnoses Essential hypertension I10 Pre-diabetes R73.03 Allergy injection reaction T80.89XA; T45.0X5A
== END 2023-02-11 09:55 | disposition home or self-care (01) ==
PROVIDERS: PCP Family Medicine; Visit Provider Family Medicine
DX: I10 Essential (primary) hypertension (principal); R73.03 Prediabetes; T80.89XA Other complications following infusion, transfusion and therapeutic injection, initial encounter; T45.0X5A Adverse effect of antiallergic and antiemetic drugs, initial encounter
CPT/HCPCS: 99214

== ENCOUNTER 2023-05-12 09:33 | Outpatient (REF) | payer MEDICARE, OTHER, SELFPAY ==
[2023-05-13 23:37] LABS: Triiodothyronine T3 Total 118 ng/dL (76-181)
== END 2023-05-12 09:34 | disposition home or self-care (01) ==
LOC: HO.WFDLDS 09:33
PROVIDERS: Visit Provider Family Medicine
DX: E03.9 Hypothyroidism, unspecified (principal)
CPT/HCPCS: 36415; 84439; 84443; 84480

== ENCOUNTER 2023-05-13 09:30 | Outpatient (AMB) | payer MEDICARE, OTHER, SELFPAY ==
[2023-05-13 09:36] VITALS: BP 126/72; PULSE 59; O2SAT 98; BMI 25.9
--- NOTE | 2023-05-13 09:36 | MHC.PC.OV ---
Vital Signs 05/13/23 09:36 Height 5 ft 11 in Weight 186 lb BMI 25.9 BP 126/72 Blood Pressure Location Lt brachial Position Sitting Pulse 59 Pulse Source Pulse Oximeter Pulse Oximetry (%) 98 Oxygen Delivery Method Room Air Intake Visit Reasons: f/u hypertenion, pre-diabetes and hypothyroidism Intake Note: Patient is here for follow up on hypertension, prediabetes, and hypothyroidism. He complains of back and hips pain. Shoulder pain, too, he injured himself playing pickle ball. Allergies bee pollen [BEE STINGS] Allergy (Unknown, Verified 05/13/23 09:42) Shortness of Breath Tobacco use date assessed: 05/13/23 Fall risk assessment: No Falls in past year Last assessed Fall Risk: 05/13/23 Dental Screening Dental Screen Date: 05/13/23 Did you have a dental visit in the last 12 months?: Yes Did you have a dental problem in the last 6 months where you did not have access to dental care?: No Was dental information given to patient?: Patient has dentist HPI f/u hypertenion, pre-diabetes and hypothyroidism HPI Details 67 y/o male presents to f/u hypertension, pre-diabetes and hypothyroidism. Blood pressure today 126/72. He is on lisinopril 5mg. Last A1c 5.6%. Thyroid levels checked 05/12/23. TSH mildly elevated at 4.18. He is on levothyroxine 37.5mcg daily. Pt reports he had hurt his back playing pickle ball about 2 weeks ago. HPI Comments History of Present Illness Details Documentation assistance for Gabriele Joiner MD, was provided by Kristian Rivas,?Freelance Makeup Artist on 05/13/2023 10:23 AM EST. Collier, Dr. Joiner, have read, observed, and verified documentation.? [facility] Medical History (Updated 05/13/23 @ 10:28 by Kristian Rivas) Back pain Hypothyroid Hypercholesteremia HTN (hypertension) Elevated PSA Surgical History History of colonoscopy History of elbow surgery History of surgery [place] teeth removed Family History Father Throat cancer Mother Cancer of anus Brother Lung cancer Prostate cancer Sister Lung cancer Sister No problems noted. Son No problems noted. Son No problems noted. Other Mental health disorder Substance use disorder Social History Housing: House Alcohol intake: current Alcohol intake frequency: holidays/special occasions only Patient Tobacco Use Status: Former Tobacco user e-Cigarette/Vaping Use: Never Used Second Hand Smoke Exposure: No service: No Current occupational status: retired Current occupational exposures/hazards: No Cognitive needs: No Hearing needs: No Vision needs: Yes (Glasses) Questionnaire Thrive Questionnaire Date Thrive assessed: 08/14/22 SY-7 AMB Questionnaire SY-7 Date SY - 7 assessed: 04/03/22 Source: Developed by Drs. Az Posada, Karen Sexton, Brandin Gomes and colleagues, with an educational rebecca from [employer]. Review of Systems Const Denies chills, Denies fatigue, Denies fever(s), Denies headache(s) and Denies weakness ENT Denies dizziness and Denies headache(s) Card Denies chest pain, Denies lightheadedness, Denies dyspnea and Denies other (Palpitations) Resp Denies cough, Denies dyspnea, Denies wheezing and Denies other ( shortness of breath) Musc Denies numbness and Denies tingling Neuro Denies dizziness, Denies headache(s), Denies numbness, Denies tingling, Denies paresthesias and Denies weakness Psych Denies anxiety and Denies depression Endo Denies fatigue Aller/Immun Denies wheezing Physical exam (Primary Care) Vital Signs: Last Vital Signs Pulse 59 05/13/23 09:36 BP 126/72 05/13/23 09:36 Pulse Ox 98 05/13/23 09:36 Oxygen Delivery Method Room Air 05/13/23 09:36 BMI result Body Mass Index 25.9 Tobacco/Smoking Status: Tobacco use Status Tobacco use date assessed 05/13/23 05/13/23 09:46 Patient Tobacco Use Status Former Tobacco user 05/13/23 09:46 e-Cigarette/Vaping Use Never Used 05/13/23 09:46 Thrive Assessment: Date of Thrive Assessment Date Thrive assessed 08/14/22 05/13/23 09:46 Const General: no acute distress and well developed Nutritional Appearance: well nourished Orientation/consciousness: patient oriented x3 HENMT Head: Yes normocephalic and Yes atraumatic Eyes General: appearance normal, both eyes and all related structures Pupils: Equal, round and reactive pupils present EOM: EOMs intact bilaterally Resp Effort & Inspection: normal respiratory effort Auscultation: clear to auscultation bilaterally Cardio Rate: regular rate Rhythm: regular rhythm Heart sounds: S1 normal heart sound present, S2 normal heart sound present, no gallops, no murmurs and no rubs Neuro General: patient oriented x3 and gait normal Cranial nerves: Yes Equal, round and reactive pupils present Psych Affect: normal affect Results AMB Hemoglobin A1c AMB Hemoglobin A1c 5.6 % Last Edit by Annalee Baig CMA on 05/13/23 10:01 Results Reviewed Results Reviewed: Laboratory Last Values Hgb A1c (Clinic) 5.6 % (4.0-6.0) 05/13/23 09:58 Assessment and Plan Assessment & Plan (1) HTN (hypertension): Code(s): I10 - Essential (primary) hypertension Plan: Blood?pressure?is?well?controlled.??Goal?is?less?than?140/90 Continue?current?medication?regimen (2) Hypothyroid: Code(s): E03.9 - Hypothyroidism, unspecified Plan: TSH?is?again?slightly?above?normal?range He?will?repeat?this?in?about?6?weeks.??If?it?is?the?same?or?higher,?we?will?increase?his?levothyroxine?slightly (3) Pre-diabetes: Code(s): R73.03 - Prediabetes Plan: A1c?improved?from?5.7%?to?5.6%. Encouraged?ongoing?diet?lower?in?sugars?and?starches (4) Back pain: Code(s): M54.9 - Dorsalgia, unspecified Plan: Ongoing/worsened?low?back?pain?despite?conservative?medications?and?some?muscle?relaxants. Gave?him?a?short?script?for?hydrocodone?x3?days?and?meloxicam Referred?him?to?physiatry?at[facility] (5) Immunization counseling: Code(s): Z71.85 - Encounter for immunization safety counseling Plan: He?is?getting?his?flu?shot?and?I?recommended?RSV?and?also?the?latest?COVID?shot. Orders: Orders AMB Hemoglobin A1c Today Z13.9 - Encounter for screening, unspecified Triiodothyronine T3 Total Today E03.9 - Hypothyroidism, unspecified Thyroid Stimulating Hormone Today E03.9 - Hypothyroidism, unspecified Free T4 (Free Thyroxine) Today E03.9 - Hypothyroidism, unspecified Comprehensive Met. Panel Today E03.9 - Hypothyroidism, unspecified Referrals Physiatry Referral M54.9 - Dorsalgia, unspecified Medications: New hydrocodone-acetaminophen 5-325 mg Partial Fill upon patient request. 1 tab PO BID 3 days PRN 6 tabs 0RF pain E03.9 - Hypothyroidism, unspecified meloxicam 15 mg PO DAILY 30 tabs 2RF 30 days hydrocodone-acetaminophen 5-325 mg Partial Fill upon patient request. 1 tab PO BID PRN 6 tabs 0RF pain 3 days E03.9 - Hypothyroidism, unspecified Refilled butalbital-acetaminophen 50-325 mg Ten tabs per 30 days. [employer] verified. Partial refill upon request. 1 tab PO DAILY PRN 10 tabs 1RF headache 30 days Coding Level of Care Code Est Pt Level 4 (24853) Diagnoses HTN (hypertension) I10 Hypothyroid E03.9 Pre-diabetes R73.03 Back pain M54.9 Immunization counseling Z71.85
== END 2023-05-13 10:38 | disposition home or self-care (01) ==
PROVIDERS: PCP Family Medicine; Visit Provider Family Medicine
DX: I10 Essential (primary) hypertension (principal); E03.9 Hypothyroidism, unspecified; R73.03 Prediabetes; M54.9 Dorsalgia, unspecified; Z71.85 Encounter for immunization safety counseling
CPT/HCPCS: 83036; 99214

== ENCOUNTER 2023-07-06 09:05 | Outpatient (REF) | payer MEDICARE, OTHER, SELFPAY ==
[2023-07-06 11:57] LABS: Alanine Aminotransferase 21 U/L (0-40); Albumin Level 4.3 g/dL (3.5-5.0); Alkaline Phosphatase 62 U/L (39-117); Anion Gap 11 (12-20); Aspartate Amino Transferase 23 U/L (5-37); Bilirubin Total 0.8 mg/dL (0.0-1.0); Blood Urea Nitrogen 20 mg/dL (9-16); Calcium 9.3 mg/dL (8.4-10.2); Carbon Dioxide 28 mmol/L (22-29); Chloride 105 mmol/L (96-108); Estimated Glomerular Filt Rate 59; Glucose Random 102 mg/dL (60-115); Potassium 4.3 mmol/L (3.3-5.1); Sodium 140 mmol/L (135-145); Total Protein 7.2 g/dL (6.5-8.0)
[2023-07-06 12:21] LABS: Free T4 (Free Thyroxine) 0.92 ng/dL (0.71-1.85); Thyroid Stimulating Hormone 3.73 uIU/mL (0.32-4.0)
[2023-07-07 09:59] LABS: Triiodothyronine T3 Total 116 ng/dL (76-181)
== END 2023-07-06 09:06 | disposition home or self-care (01) ==
LOC: HO.WFDLDS 09:05
PROVIDERS: Visit Provider Family Medicine
DX: E03.9 Hypothyroidism, unspecified (principal)
CPT/HCPCS: 36415; 80053; 84439; 84443; 84480

== ENCOUNTER 2023-07-08 16:34 | Outpatient (AMB) | payer MEDICARE, OTHER, SELFPAY ==
--- NOTE | 2023-07-08 16:32 | MHC.PC.OV ---
Intake Visit Reasons: [id number], f/u hypothyroidism Intake Note: Patient is follow up regarding his lab results. Coffee Shop Attendant Required: No Accompanied by: Self / Same As Patient Allergies bee pollen [BEE STINGS] Allergy (Unknown, Verified 05/13/23 09:42) Shortness of Breath Tobacco use date assessed: 05/13/23 HPI f/u hypothyroidism HPI Details 67 y/o male presents to f/u hypothyroidism via telemedicine. Labs were drawn 07/06/23. Reviewed labs wtih pt. TSH improved from 4.18 to 3.73. [facility] Medical History (Updated 05/13/23 @ 10:28 by Kristian Rivas) Back pain Hypothyroid Hypercholesteremia HTN (hypertension) Elevated PSA Surgical History History of colonoscopy History of elbow surgery History of surgery [place] teeth removed Family History Father Throat cancer Mother Cancer of anus Brother Lung cancer Prostate cancer Sister Lung cancer Sister No problems noted. Son No problems noted. Son No problems noted. Other Mental health disorder Substance use disorder Social History Housing: House Alcohol intake: current Alcohol intake frequency: holidays/special occasions only Patient Tobacco Use Status: Former Tobacco user e-Cigarette/Vaping Use: Never Used Second Hand Smoke Exposure: No service: No Current occupational status: retired Current occupational exposures/hazards: No Cognitive needs: No Hearing needs: No Vision needs: Yes (Glasses) Questionnaire Thrive Questionnaire Date Thrive assessed: 08/14/22 SY-7 AMB Questionnaire SY-7 Date SY - 7 assessed: 04/03/22 Source: Developed by Drs. Az Posada, Karen Sexton, Brandin Gomes and colleagues, with an educational rebecca from [employer]. Physical exam (Primary Care) Tobacco/Smoking Status: Tobacco use Status Tobacco use date assessed 05/13/23 07/08/23 16:34 Patient Tobacco Use Status Former Tobacco user 07/08/23 16:34 e-Cigarette/Vaping Use Never Used 07/08/23 16:34 Thrive Assessment: Date of Thrive Assessment Date Thrive assessed 08/14/22 07/08/23 16:34 Telehealth Telehealth Location of provider rendering services: practice address Location of patient: address on file Patient Identification confirmed using: Name, : Yes Telehealth method: voice only Patient verbally consented to treatment: Yes Patient verbally consented to billing insurance company: Yes Patient informed of any privacy concerns related to visit: Yes Minutes spent on Phone/Video with Pt.: 8 Assessment and Plan Assessment & Plan (1) Hypothyroid: Code(s): E03.9 - Hypothyroidism, unspecified Plan: Thyroid?hormone?levels?are?all?within?normal?limits?once?again. Continue?current?medication (2) Migraine: Code(s): G43.909 - Migraine, unspecified, not intractable, without status migrainosus Plan: Topiramate?is?helping?and?I?will?send?a?refill (3) Back pain: Code(s): M54.9 - Dorsalgia, unspecified Plan: Resolved?with?physical?therapy (4) Pre-diabetes: Code(s): R73.03 - Prediabetes Plan: He?is?had?a?history?of?elevated?fasting?blood?sugars.??Will?repeat?with?next?lab?draw. Orders: Orders Hemoglobin A1c Today R73.01 - Impaired fasting glucose, R73.03 - Prediabetes Comprehensive [place]. Panel Fast Today R73.03 - Prediabetes, Z00.00 - Encounter for general adult medical examination without abnormal findings Lipid Panel Today E78.00 - Pure hypercholesterolemia, unspecified, Z00.00 - Encounter for general adult medical examination without abnormal findings Prostate Specific Antigen Scr Today R97.20 - Elevated prostate specific antigen [PSA], Z12.5 - Encounter for screening for malignant neoplasm of prostate Medications: Refilled topiramate 25 mg PO DAILY 30 days 30 tabs 4RF Coding Level of Care Code Tele Est Pt Level 2 (60322) Diagnoses Hypothyroid E03.9 Migraine G43.909 Back pain M54.9 Pre-diabetes R73.03
== END 2023-07-08 16:45 | disposition home or self-care (01) ==
PROVIDERS: PCP Family Medicine; Visit Provider Family Medicine
DX: E03.9 Hypothyroidism, unspecified (principal); G43.909 Migraine, unspecified, not intractable, without status migrainosus; M54.9 Dorsalgia, unspecified; R73.03 Prediabetes
CPT/HCPCS: 99441

== ENCOUNTER 2023-08-17 08:02 | Outpatient (REF) | payer MEDICARE, OTHER, SELFPAY ==
[2023-08-17 11:15] LABS: Estimated Average Glucose 111 mg/dL; Hemoglobin A1c % 5.5 % (<6.0)
[2023-08-17 11:28] LABS: Alanine Aminotransferase 18 U/L (0-40); Albumin Level 4.1 g/dL (3.5-5.0); Alkaline Phosphatase 61 U/L (39-117); Anion Gap 8 (12-20); Aspartate Amino Transferase 18 U/L (5-37); Bilirubin Total 0.4 mg/dL (0.0-1.0); Blood Urea Nitrogen 16 mg/dL (9-16); Carbon Dioxide 28 mmol/L (22-29); Chloride 107 mmol/L (96-108); Cholesterol 151 mg/dL (<200); Estimated Glomerular Filt Rate > 60; Glucose Fasting 98 mg/dL (60-99); HDL Cholesterol 45 mg/dL (>40); LDL Cholesterol Calculated 92 mg/dL (<100); Potassium 4.3 mmol/L (3.3-5.1); Sodium 139 mmol/L (135-145); Total Protein 6.7 g/dL (6.5-8.0); Triglycerides 70 mg/dL (<150)
[2023-08-17 11:36] LABS: Prostate Specific Antigen Scr 1.54 ng/mL (<0.05-4.0)
== END 2023-08-17 08:03 | disposition home or self-care (01) ==
LOC: HO.WFDLDS 08:02
PROVIDERS: Visit Provider Family Medicine
DX: Z00.00 Encounter for general adult medical examination without abnormal findings (principal); R73.03 Prediabetes; R73.01 Impaired fasting glucose; E78.00 Pure hypercholesterolemia, unspecified; R97.20 Elevated prostate specific antigen [PSA]; Z12.5 Encounter for screening for malignant neoplasm of prostate
CPT/HCPCS: 36415; 80053; 80061; 83036; 84153

== ENCOUNTER 2023-09-25 09:00 | Outpatient (AMB) | payer MEDICARE, OTHER, SELFPAY ==
[2023-09-25 10:20] VITALS: BP 124/68; PULSE 64; RESP 14; TEMP 36.4; O2SAT 98; BMI 26.4
--- NOTE | 2023-09-25 10:20 | A.OFFPC_ITS ---
Vital Signs 09/25/23 10:20 Height 5 ft 11 in Weight 189 lb 8 oz BMI 26.4 BP 124/68 Blood Pressure Location Rt brachial Position Sitting Respiration 14 Pulse 64 Pulse Source Pulse Oximeter Temp 97.6 F Temp Source Temporal Artery Scan Pulse Oximetry (%) 98 Oxygen Delivery Method Room Air Intake Visit Reasons: PE Bag Sealer Required: No Accompanied by: Self / Same As Patient Allergies bee pollen [BEE STINGS] Allergy (Unknown, Verified 09/25/23 10:27) Shortness of Breath Tobacco use date assessed: 09/25/23 Fall risk assessment: No Falls in past year Last assessed Fall Risk: 09/25/23 Dental Screening Dental Screen Date: 09/25/23 Did you have a dental visit in the last 12 months?: Yes Did you have a dental problem in the last 6 months where you did not have access to dental care?: No Was dental information given to patient?: Patient has dentist HPI PE HPI Details 68 y/o male presents for an extended exa m with f/u labs and health maintenance. Labs were drawn 08/17/23. Reviewed labs with pt. A1c 5.5%. Hx of pre-diabetes. Triglycerides 70. TC 151. LDL 92. HDL 45. Blood pressure today 124/68. He is on lisinopril 5mg daily. Pt states he continues to eat a healthy diet. He walks for exercise. [facility] Medical History Back pain Hypothyroid Hypercholesteremia HTN (hypertension) Elevated PSA Surgical History History of colonoscopy History of elbow surgery History of surgery [place] teeth removed Family History Father Throat cancer Mother Cancer of anus Brother Lung cancer Prostate cancer Sister Lung cancer Sister No problems noted. Son No problems noted. Son No problems noted. Other Mental health disorder Substance use disorder Social History Housing: House Alcohol intake: current Alcohol intake frequency: holidays/special occasions only Patient Tobacco Use Status: Former Tobacco user e-Cigarette/Vaping Use: Never Used Second Hand Smoke Exposure: No service: No Current occupational status: retired Current occupational exposures/hazards: No Cognitive needs: No Hearing needs: No Vision needs: Yes (Glasses) Questionnaire PHQ-9 Over the last 2 weeks, how often have you been bothered by any of the following problems? 1. Little interest or pleasure in doing things: not at all 2. Feeling down, depressed, or hopeless: not at all 3. Trouble falling or staying asleep, or sleeping too much: not at all 4. Feeling tired or having little energy: not at all 5. Poor appetite or overeating: not at all 6. Feeling bad about yourself - or that you are a failure or have let yourself or your family down: not at all 7. Trouble concentrating on things, such as reading the newspaper or watching television: not at all 8. Moving or speaking so slowly that other people could have noticed. Or the opposite - being so fidgety or restless that you have been moving around a lot more than usual: not at all 9. Thoughts that you would be better off or of hurting yourself in some way: not at all Total score: 0 Depression Screening Interpretation: Negative Depression Screening Done: Yes 97525 - PHQ-9 Billing: Yes Source: Developed by Drs. Az Posada, Karne Sexton, Brandin Gomes and colleagues, with an educational rebecca from [employer]. Thrive Questionnaire Date Thrive assessed: 09/25/23 I am a: Patient What is your living situation today?: I have a steady place to live Within the past 12 months, did the food you bought not last and you didn't have the money to get more?: Never true Within the past 12 months, did you worry whether your food would run out before you got money to buy more?: Never true Do you have trouble paying for medicines?: No Do you have trouble getting transportation to medical appointments?: No Do you have trouble paying your heating and electricity bill?: No Do you have trouble taking care of your child, family member or friend?: No Do you have trouble with day-to-day activities such as bathing, preparing meals, shopping, managing finances, etc.?: No Are you currently unemployed and looking for a job?: No Are you interested in more education?: No Please select the resources that you would like help with: None Currently or been in a relationship where the following occur: no concerns reported THRIVE Score: 0 AUDIT C Alcohol Use Questionnaire (AUDIT-C) 1. How often do you have a drink containing alcohol?: 4 or more times a week 2. How many drinks containing alcohol do you have on a typical day when you are drinking?: 1 or 2 3. How often do you have six or more drinks on one occasion?: Never Total Score: 4 SY-7 AMB Questionnaire SY-7 Date SY - 7 assessed: 09/25/23 Feeling nervous, anxious, or on edge: 0 = Not at all Not being able to stop or control worryin = Not at all Worrying too much about different things: 0 = Not at all Trouble relaxin = Not at all Being so restless that it is hard to sit still: 0 = Not at all Becoming easily annoyed or irritable: 0 = Not at all Feeling afraid as if something awful might happen: 0 = Not at all Total SY-7 score (0-4 normal; 5-9 mild; 10-14 moderate; 15-21 severe): 0 Source: Developed by Drs. Az Posada, Karen Sexton, Brandin Gomes and colleagues, with an educational rebecca from [employer]. SY-7 Assessment Billing SY-7 Assessment Tool: SY-7 Assessment 33420 Review of Systems Const Denies chills, Denies fatigue, Denies fever(s), Denies headache(s) and Denies weakness Eyes Denies change in vision ENT Denies dizziness, Denies headache(s), Denies hearing loss, Denies nasal congestion, Denies sinus pain, Denies sinus pressure and Denies sore throat Card Denies chest pain, Denies lightheadedness, Denies dyspnea and Denies other (palpitations) Resp Denies cough, Denies dyspnea and Denies wheezing GI Denies abdominal pain, Denies melena, Denies hematochezia, Denies change in bowel habits, Denies dyspepsia and Denies nausea Denies hematuria and Denies dysuria Musc Denies abnormal gait, Denies myalgias, Denies arthralgias, Denies numbness and Denies tingling Skin/Breast Denies rash, Denies unusual bruising and Denies wounds Neuro Denies abnormal gait, Denies dizziness, Denies headache(s), Denies memory loss, Denies numbness, Denies Sensory deficit (Neuro), Denies tingling and Denies weakness Psych Denies anxiety, Denies depression and Denies memory loss Endo Denies cold intolerance, Denies fatigue, Denies heat intolerance, Denies polydipsia and Denies polyuria Axel/Lymph Denies easy bleeding and Denies easy bruising Aller/Immun Denies wheezing Physical exam (Primary Care) Vital Signs: Last Vital Signs Temp 97.6 F 09/25/23 10:20 Pulse 64 09/25/23 10:20 Resp 14 09/25/23 10:20 BP 124/68 09/25/23 10:20 Pulse Ox 98 09/25/23 10:20 Oxygen Delivery Method Room Air 09/25/23 10:20 BMI result Body Mass Index 26.4 Tobacco/Smoking Status: Tobacco use Status Tobacco use date assessed 09/25/23 09/25/23 10:31 Patient Tobacco Use Status Former Tobacco user 09/25/23 10:31 e-Cigarette/Vaping Use Never Used 09/25/23 10:31 PHQ-9: PHQ-9 Score PHQ-9: Total score 0 09/25/23 10:47 Depression Screening Interpretation: Negative Thrive Assessment: Date of Thrive Assessment Date Thrive assessed 09/25/23 09/25/23 10:31 Currently or been in a relationship where the following occur: no concerns reported Const General: no acute distress, well developed, alert and awake Nutritional Appearance: well nourished Orientation/consciousness: patient oriented x3 HENMT Head: Yes normocephalic and Yes atraumatic Ears: hearing grossly normal bilaterally and TM's normal bilaterally General nose exam: Normal external nose present and Normal nares present Mouth: Normal oral and palatal mucosa present and moist mucous membranes Teeth and gingiva: dentition normal Throat: Yes posterior oropharynx normal Eyes General: appearance normal, both eyes and all related structures Pupils: Equal, round and reactive pupils present and Pupil accommodation reflex normal EOM: EOMs intact bilaterally Neck Neck: Yes normal visual inspection, Yes no lymphadenopathy and Yes trachea midline Thyroid: Thyroid normal Carotids: no bruits Lymphatic: no lymphadenopathy noted Chest Chest palpation & inspection: normal inspection of the chest Resp Effort & Inspection: normal respiratory effort Auscultation: clear to auscultation bilaterally Cardio Rate: regular rate Rhythm: regular rhythm Heart sounds: S1 normal heart sound present, S2 normal heart sound present, no gallops, no murmurs and no rubs Bruits: no abdominal aortic bruits and no carotid bruits GI Palpation (GI): No Abdominal aortic bruit present, Soft to palpation, nontender, No hepatosplenomegaly present and No Rebound tenderness present Auscultation: normal bowel sounds General: Yes no CVA tenderness Back/Spine/Pelvis Back: no CVA tenderness Cervical Spine: cervical ROM normal and No Cervical spine tenderness Thoracic/Lumbar Spine: thoraco-lumbar ROM normal, No pain with thoraco-lumbar ROM, No thoracic spinal tenderness and No lumbar spinal tenderness Skin Lesions: no lesions Rashes: no rashes Trauma: no lacerations or abrasions Wounds: no wounds Nails: normal Neuro General: patient oriented x3 Cranial nerves: Yes Equal, round and reactive pupils present Cognition (Neuro): normal cognition Gait exam (Neuro): Normal gait present Motor exam (neuro): 5/5 motor strength present throughout Sensory Exam: No Sensory deficit (Neuro) Deep tendon reflexes (DTR's): Right patellar reflex intensity grade: 2+ and Left patellar reflex intensity grade: 2+ Extrem General: Yes normal to inspection and No edema Psych Appearance: grossly normal Affect: normal affect Attitude: cooperative Thought process: Normal thought process present Assessment and Plan Assessment & Plan (1) Pre-diabetes: Code(s): R73.03 - Prediabetes Plan: A1c?in?top?normal?range Continue?to?work?at?a?diet?low?in?sugars?and?starches (2) HTN (hypertension): Code(s): I10 - Essential (primary) hypertension Plan: Blood?pressure?is?controlled.??Goal?is?less?than?140/90 Continue?current?medication?regimen (3) Hypothyroid: Code(s): E03.9 - Hypothyroidism, unspecified Plan: Thyroid?hormone?levels?within?normal?limits Continue?levothyroxine?as?prescribed (4) Back pain: Code(s): M54.9 - Dorsalgia, unspecified Plan: Chronic?back?pain,?controlled?on?tramadol Continue?exercises?learned?at?physical?therapy (5) Change in hearing: Code(s): H91.90 - Unspecified hearing loss, unspecified ear Plan: Ordered?audiology?testing (6) Screening for colon cancer: Code(s): Z12.11 - Encounter for screening for malignant neoplasm of colon Plan: Patient?says?he?is?due?for?his?next?colonoscopy-referred?back?to??[facility] (7) Screening for prostate cancer: Code(s): Z12.5 - Encounter for screening for malignant neoplasm of prostate Plan: PSA?within?normal?limits?and?steady Will?continue?annual?screening (8) Adult general medical exam: Code(s): Z00.00 - Encounter for general adult medical examination without abnormal findings Plan: 68-year-old?male?presents?for?an?extended?exam Encouraged?healthy?diet?with?active?lifestyle?and?plenty?of?exercise Orders: Orders Free T4 (Free Thyroxine) Today E03.9 - Hypothyroidism, unspecified Thyroid Stimulating Hormone Today E03.9 - Hypothyroidism, unspecified Triiodothyronine T3 Total Today E03.9 - Hypothyroidism, unspecified Basic Metabolic Panel Today E03.9 - Hypothyroidism, unspecified, Z00.00 - Encounter for general adult medical examination without abnormal findings UA and rflx microscopic Today R73.03 - Prediabetes, Z00.00 - Encounter for general adult medical examination without abnormal findings Hemoglobin A1c Today R73.01 - Impaired fasting glucose Microalbumin, Random (w Creat) Today I10 - Essential (primary) hypertension, R73.03 - Prediabetes Referrals Gastroenterology Referral Z12.11 - Encounter for screening for malignant neoplasm of colon Audiology Referral H91.90 - Unspecified hearing loss, unspecified ear Medications: Changed From butalbital-acetaminophen 50-325 mg Ten tabs per 30 days. MassPat verified. Partial refill upon request. 1 tab PO DAILY 30 days PRN 10 tabs 1RF headache To butalbital-acetaminophen 50-325 mg 20 tabs per 30 days. MassPat verified. Partial refill upon request. 1 tab PO DAILY PRN 20 tabs 1RF headache 30 days Coding Level of Care Code Est Pt Level 4 (51187) Diagnoses Pre-diabetes R73.03 HTN (hypertension) I10 Hypothyroid E03.9 Back pain M54.9 Change in hearing H91.90 Screening for colon cancer Z12.11 Screening for prostate cancer Z12.5 Adult general medical exam Z00.00 Additional Codes SY-7 Assessment Billing - SY-7 Assessment Tool: SY-7 Assessment 18945 ([id number])
== END 2023-09-25 11:05 | disposition home or self-care (01) ==
PROVIDERS: Visit Provider Family Medicine
DX: R73.03 Prediabetes (principal); I10 Essential (primary) hypertension; E03.9 Hypothyroidism, unspecified; M54.9 Dorsalgia, unspecified; H91.90 Unspecified hearing loss, unspecified ear; Z12.11 Encounter for screening for malignant neoplasm of colon; Z12.5 Encounter for screening for malignant neoplasm of prostate; Z00.00 Encounter for general adult medical examination without abnormal findings
CPT/HCPCS: 99214

== ENCOUNTER 2023-11-03 08:56 | Outpatient (REF) | payer MEDICARE, OTHER, SELFPAY | END 2023-11-03 08:57 | disposition home or self-care (01) | LOC: HO.SH 08:56 | PROVIDERS: PCP Family Medicine; Visit Provider Family Medicine | DX: H90.3 Sensorineural hearing loss, bilateral (principal) | CPT/HCPCS: 92557 ==

== ENCOUNTER 2023-11-12 10:02 | Outpatient (REF) | payer SELFPAY ==
--- NOTE | 2023-11-12 10:55 | MHC.AU.HA1 ---
Hearing Aid Evaluation Date of Visit: 11/12/23 Historical Information: Description of Hearing: Within normal gradually sloping to moderately severe sensorineural hearing loss, bilateral. Summary: Daniel is here, ready to proceed with amplification after his recent hearing evaluation. Reviewed recommended style- RITE. Daniel selected rechargeable option, steel lee. He has an iphone that he would like to pair with. Selected connect clip for promo device- he is interested in the remote deep feature and streaming from computer for zoom sessions. Otoscopy clear Au. Measured size 2 detect sports trainer. Counseled on adjustment to amplification. He has coverage with [facility], he will need to submit for reimbursement. Hearing Aid Prescription: Based on the individual?s shared listening needs, communication environments, dexterity, desire for connectivity, and personal preferences, the following prescription for amplification has been made: Right ear: Make, Model, Color: Oticon Intent 2 miniRITE R, steel lee Battery Size: Rechargeable Promotions Assistant Sales Marketing/Slim Tube: 2/85 Type of Earmold/Dome/CShell/SlimTip: 8mm open valdez Left ear: Make, Model, Color: Oticon Intent 2 miniRITE R, steel lee Battery Size: Rechargeable Promotions Assistant Sales Marketing/Slim Tube: 2/85 Type of Earmold/Dome/CShell/SlimTip: 8mm open valdez Accessories/Assistive Technology Recommended: connect clip Plan of Care: Patient wishes to purchase hearing aids as prescribed Action Taken/Action Needed: Medical Clearance to be requested from PCP/ENT Hearing Instrument Fitting to be scheduled when materials arrive Primary Diagnosis: H90.3 Bilateral Sensorineural Hearing Loss Secondary Diagnosis: H93.13 Tinnitus, Bilateral Signature: Provider: Nohemy Gonzalez, [facility]
== END 2023-11-12 10:03 | disposition home or self-care (01) ==
LOC: HO.HAP 10:02
PROVIDERS: Visit Provider Family Medicine
DX: Z46.1 Encounter for fitting and adjustment of hearing aid (principal); H90.3 Sensorineural hearing loss, bilateral
CPT/HCPCS: 92590

== ENCOUNTER 2023-12-04 09:59 | Outpatient (REF) | payer SELFPAY ==
--- NOTE | 2023-12-04 13:03 | MHC.AU.HA2 ---
Hearing Instrument Fitting- Adult- Binaural Date of Visit: 12/04/23 Hearing Instruments Dispensed: Right Ear: George, Model, Color, Serial Number: Oticon Intent 2 miniRITE ree Coleman [id number] Forge Press Operator Repair Warranty: 12/11/2026 Forge Press Operator Loss and Damage Warranty: 12/11/2026 [facility] Service Plan: none Battery Size: Rechargeable Architecture Intern/Slim Tube: 2/85 Earmold/Dome/CShell/SlimTip: 8mm open valdez Type of Wax Guard: Oticon minifit prowax Left Ear: George, Model, Color, Serial Number: Oticon Intent 2 miniRIree GRULLON [id number] Forge Press Operator Repair Warranty: 12/11/2026 Forge Press Operator Loss and Damage Warranty: 12/11/2026 [facility] Service Plan: none Battery Size: Rechargeable Architecture Intern/Slim Tube: 2/85 Earmold/Dome/CShell/SlimTip: 8mm open valdez Type of Wax Guard: Oticon minifit prowax Accessories/Assistive Technology: Oticon matrix inspector minirite S#[id number] Warranty 12/11/2026 Connectclip [id number] Warranty 12/11/2024 Summary of Fitting: Fit with and oriented to binaural oticon intent 2 hearing aids. Could not finish real ear measures, technical problem with free fit. Run again and store at follow up. Programmed to DSL 5 Adult. Good subjective comfort and benefit reported. Reviewed charging, maintenance, use and care. Practiced insertion and removal. Paired connect clip to aids and reviewed use. Provided itemized receipt. Recommendations: Recommendations: Hearing instrument care and maintenance were discussed and practiced. The instrument(s) were paired to the patient's smartphone. A hearing instrument follow-up was scheduled. Diagnosis Code(s): Primary Diagnosis: H90.3 Bilateral Sensorineural Hearing Loss Secondary Diagnosis: H93.13 Tinnitus, Bilateral Signature: Provider: Nohemy Gonzalez, [facility]
== END 2023-12-04 10:00 | disposition home or self-care (01) ==
LOC: HO.HAP 09:59
PROVIDERS: Visit Provider Family Medicine
DX: Z46.1 Encounter for fitting and adjustment of hearing aid (principal); H90.3 Sensorineural hearing loss, bilateral
CPT/HCPCS: 92700; V5261; V5299

== ENCOUNTER 2023-12-18 08:37 | Outpatient (REF) | payer SELFPAY ==
--- NOTE | 2023-12-18 09:41 | MHC.AU.HA3 ---
Hearing Instrument Follow-Up- Binaural Date of Visit: 12/18/23 Right Ear: George, Model, Color, Serial Number: Oticon Intent 2 miniRITE Rree [id number] Fig Bar Machine Operator Repair Warranty: 12/11/2026 Fig Bar Machine Operator Loss and Damage Warranty: 12/11/2026 [facility] Service Plan: none Battery Size: Rechargeable Processor Helper/Slim Tube: 2/85 Earmold/Dome/CShell/SlimTip:8mm open valdez Type of Wax Guard: Oticon minifit prowax Dispensed By: [facility] Date of Fittin12/04/2023 Left Ear: George, , Color, Serial Number: Oticon Intent 2 miniRITE ree Coleman#[id number] Fig Bar Machine Operator Repair Warranty: 12/11/2026 Fig Bar Machine Operator Loss and Damage Warranty: 12/11/2026 [facility] Service Plan: none Battery Size: Rechargeable Processor Helper/Slim Tube: 2/85 Earmold/Dome/CShell/SlimTip: 8mm open valdez Type of Wax Guard: Oticon minifit prowax Dispensed By: [facility] Date of Fittin12/04/2023 Follow-Up Summary: Here for follow up. Recently fit with binaural Oticon Intent 2 hearing aids. Reports things are going well, finding the hearing aids very helpful. Hasn't used to connect clip yet. Reviewed changing domes and wax guards. Discussed having re-eval next November to check on hearing loss and adjust aids if needed. Recommendations: Recommendations: Hearing instrument follow-up or maintenance as needed. Please contact our clinic with any questions or concerns. Diagnosis Code(s): Primary Diagnosis: H90.3 Bilateral Sensorineural Hearing Loss Secondary Diagnosis: H93.13 Tinnitus, Bilateral Signature: Provider: Nohemy Gonzalez, CCC-A
== END 2023-12-18 08:38 | disposition home or self-care (01) ==
LOC: HO.HAP 08:37
PROVIDERS: Visit Provider Family Medicine
DX: Z13.89 Encounter for screening for other disorder (principal)

== ENCOUNTER 2024-01-11 09:54 | Outpatient (REF) | payer MEDICARE, OTHER, SELFPAY ==
[2024-01-11 11:48] LABS: Estimated Average Glucose 117 mg/dL; Hemoglobin A1c % 5.7 % (<6.0)
[2024-01-11 12:12] LABS: Anion Gap 15 (12-20); Blood Urea Nitrogen 17 mg/dL (9-16); Calcium 9.1 mg/dL (8.4-10.2); Carbon Dioxide 25 mmol/L (22-29); Chloride 106 mmol/L (96-108); Estimated Glomerular Filt Rate > 60; Glucose Random 98 mg/dL (60-115); Potassium 4.2 mmol/L (3.3-5.1); Sodium 142 mmol/L (135-145)
[2024-01-11 12:19] LABS: Appearance Urine Clear; Color Urine Yellow; Glucose Urine UA Negative (Negative); Leukocyte Esterase Urine Negative (Negative); Nitrite Urine Negative (Negative); Urine Blood Negative (Negative); Urine Ketones Negative (Negative); Urine Protein Negative (Neg-Trace)
[2024-01-11 12:22] LABS: Creatinine Urine 69.93 mg/dL; Microalbumin Urine < 5.0 mg/L
[2024-01-11 12:27] LABS: Prostate Specific Antigen Scr 1.77 ng/mL (<0.05-4.0)
[2024-01-11 12:35] LABS: Thyroid Stimulating Hormone 2.92 uIU/mL (0.32-4.0)
[2024-01-12 09:53] LABS: Triiodothyronine T3 Total 100 ng/dL (76-181)
== END 2024-01-11 09:55 | disposition home or self-care (01) ==
LOC: HO.WFDLDS 09:54
PROVIDERS: Visit Provider Family Medicine
DX: Z00.00 Encounter for general adult medical examination without abnormal findings (principal); E03.9 Hypothyroidism, unspecified; R73.03 Prediabetes; R73.01 Impaired fasting glucose; I10 Essential (primary) hypertension; Z12.5 Encounter for screening for malignant neoplasm of prostate
CPT/HCPCS: 36415; 80048; 81003; 82043; 82570; 83036; 84153; 84439; 84443; 84480

== ENCOUNTER 2024-01-13 09:01 | Outpatient (AMB) | payer MEDICARE, OTHER, SELFPAY ==
[2024-01-13 09:10] VITALS: BP 122/70; PULSE 54; O2SAT 100; BMI 25.9
--- NOTE | 2024-01-13 09:10 | A.OFFPC_ITS ---
Vital Signs 01/13/24 09:10 Height 5 ft 11 in Weight 186 lb BMI 25.9 BP 122/70 Blood Pressure Location Lt brachial Position Sitting Pulse 54 Pulse Source Pulse Oximeter Pulse Oximetry (%) 100 Oxygen Delivery Method Room Air Intake Visit Reasons: Extended exam with f/u labs and health maintenance Intake Note: Patient is here for extended exam with follow up on labs and health maintenance. Allergies bee pollen [BEE STINGS] Allergy (Unknown, Verified 01/13/24 09:12) Shortness of Breath Tobacco use date assessed: 01/13/24 Fall risk assessment: No Falls in past year Last assessed Fall Risk: 01/13/24 Dental Screening Dental Screen Date: 09/25/23 Did you have a dental visit in the last 12 months?: Yes Did you have a dental problem in the last 6 months where you did not have access to dental care?: No Was dental information given to patient?: Patient has dentist HPI Extended exam with f/u labs and health maintenance HPI Details 68 y/o male [facility] f[facility]. Labs were drawn 01/11/24. Reviewed labs with pt. A1c 5.7%. TSH 2.92. Free T4 0.90, Total T3 100. He is on levothyroxine 37.5mcg daily. [facility] Medical History Back pain Hypothyroid Hypercholesteremia HTN (hypertension) Elevated PSA Surgical History History of colonoscopy History of elbow surgery History of surgery [place] teeth removed Family History Father Throat cancer Mother Cancer of anus Brother Lung cancer Prostate cancer Sister Lung cancer Sister No problems noted. Son No problems noted. Son No problems noted. Other Mental health disorder Substance use disorder Social History Housing: House Alcohol intake: current Alcohol intake frequency: holidays/special occasions only Patient Tobacco Use Status: Former Tobacco user e-Cigarette/Vaping Use: Never Used Second Hand Smoke Exposure: No service: No Current occupational status: retired Current occupational exposures/hazards: No Cognitive needs: No Hearing needs: No Vision needs: Yes (Glasses) Questionnaire PHQ-9 Over the last 2 weeks, how often have you been bothered by any of the following problems? 1. Little interest or pleasure in doing things: not at all 2. Feeling down, depressed, or hopeless: not at all 3. Trouble falling or staying asleep, or sleeping too much: not at all 4. Feeling tired or having little energy: not at all 5. Poor appetite or overeating: not at all 6. Feeling bad about yourself - or that you are a failure or have let yourself or your family down: not at all 7. Trouble concentrating on things, such as reading the newspaper or watching television: not at all 8. Moving or speaking so slowly that other people could have noticed. Or the opposite - being so fidgety or restless that you have been moving around a lot more than usual: not at all 9. Thoughts that you would be better off or of hurting yourself in some way: not at all Total score: 0 Depression Screening Interpretation: Negative Depression Screening Done: Yes Source: Developed by Drs. Az Posada, Karen Sexton, Brandin Gomes and colleagues, with an educational rebecca from [employer]. Thrive Questionnaire Date Thrive assessed: 01/13/24 I am a: Patient What is your living situation today?: I have a steady place to live Within the past 12 months, did the food you bought not last and you didn't have the money to get more?: Never true Within the past 12 months, did you worry whether your food would run out before you got money to buy more?: Never true Do you have trouble paying for medicines?: No Do you have trouble getting transportation to medical appointments?: No Do you have trouble paying your heating and electricity bill?: No Do you have trouble taking care of your child, family member or friend?: No Do you have trouble with day-to-day activities such as bathing, preparing meals, shopping, managing finances, etc.?: No Are you currently unemployed and looking for a job?: No Are you interested in more education?: No THRIVE Score: 0 AUDIT C Alcohol Use Questionnaire (AUDIT-C) 1. How often do you have a drink containing alcohol?: 4 or more times a week 2. How many drinks containing alcohol do you have on a typical day when you are drinking?: 1 or 2 3. How often do you have six or more drinks on one occasion?: Never Total Score: 4 SY-7 AMB Questionnaire SY-7 Date SY - 7 assessed: 01/13/24 Feeling nervous, anxious, or on edge: 0 = Not at all Not being able to stop or control worryin = Not at all Worrying too much about different things: 0 = Not at all Trouble relaxin = Not at all Being so restless that it is hard to sit still: 0 = Not at all Becoming easily annoyed or irritable: 0 = Not at all Feeling afraid as if something awful might happen: 0 = Not at all Total SY-7 score (0-4 normal; 5-9 mild; 10-14 moderate; 15-21 severe): 0 Source: Developed by Drs. Az Posada, Karen Sexton, Brandin Gomes and colleagues, with an educational rebecca from [employer]. Review of Systems Const Denies chills, Denies fatigue, Denies fever(s), Denies headache(s) and Denies weakness ENT Denies dizziness and Denies headache(s) Card Denies dyspnea Resp Denies cough, Denies dyspnea, Denies wheezing and Denies other (shortness of breath) Musc Denies numbness and Denies tingling Neuro Denies dizziness, Denies headache(s), Denies numbness, Denies tingling and Denies weakness Psych Denies anxiety and Denies depression Endo Denies fatigue Aller/Immun Denies wheezing Physical exam (Primary Care) Vital Signs: Last Vital Signs Pulse 54 01/13/24 09:10 BP 122/70 01/13/24 09:10 Pulse Ox 100 01/13/24 09:10 Oxygen Delivery Method Room Air 01/13/24 09:10 BMI result Body Mass Index 25.9 Tobacco/Smoking Status: Tobacco use Status Tobacco use date assessed 01/13/24 01/13/24 09:23 Patient Tobacco Use Status Former Tobacco user 01/13/24 09:11 e-Cigarette/Vaping Use Never Used 01/13/24 09:11 PHQ-9: PHQ-9 Score PHQ-9: Total score 0 01/13/24 09:23 Depression Screening Interpretation: Negative Thrive Assessment: Date of Thrive Assessment Date Thrive assessed 01/13/24 01/13/24 09:23 Const General: well developed; No acute distress Nutritional Appearance: well nourished Orientation/consciousness: patient oriented x3 HENMT Head: Yes normocephalic and Yes atraumatic Eyes General: appearance normal, both eyes and all related structures Pupils: Equal, round and reactive pupils present EOM: EOMs intact bilaterally Resp Effort & Inspection: normal respiratory effort Neuro General: patient oriented x3 and gait normal Cranial nerves: Yes Equal, round and reactive pupils present Psych Affect: normal affect Assessment and Plan Assessment & Plan (1) Hypothyroid: Code(s): E03.9 - Hypothyroidism, unspecified Plan: Thyroid?hormone?levels?are?well?controlled. Continue?current?medication (2) Pre-diabetes: Code(s): R73.03 - Prediabetes Plan: A1c?5.7%;?early?pre?diabetes?range Encouraged?exercise?and?weight?control.??Encouraged?a?diet?lower?in?sugars?and?s tarches He?can?recheck?this?in?a?few?months. Orders: Orders Basic Metabolic Panel Fasting Today R73.03 - Prediabetes Microalbumin, Random (w Creat) Today I10 - Essential (primary) hypertension, R73.03 - Prediabetes Hemoglobin A1c Today R73.01 - Impaired fasting glucose, R73.03 - Prediabetes UA and rflx microscopic Today R73.03 - Prediabetes, Z00.00 - Encounter for general adult medical examination without abnormal findings Coding Level of Care Code Tele Est Pt Level 3 (20717) Diagnoses Hypothyroid E03.9 Pre-diabetes R73.03
== END 2024-01-13 10:01 | disposition home or self-care (01) ==
PROVIDERS: PCP Family Medicine; Visit Provider Family Medicine
DX: E03.9 Hypothyroidism, unspecified (principal); R73.03 Prediabetes
CPT/HCPCS: 99213

== ENCOUNTER 2024-02-25 10:32 | Outpatient (REF) | payer SELFPAY | END 2024-02-25 10:33 | disposition home or self-care (01) | LOC: HO.HAP 10:32 | PROVIDERS: Visit Provider Family Medicine | DX: Z13.89 Encounter for screening for other disorder (principal) ==

== ENCOUNTER 2024-02-25 13:13 | Outpatient (REF) | payer SELFPAY | END 2024-02-25 13:14 | disposition home or self-care (01) | LOC: HO.HAP 13:13 | PROVIDERS: Visit Provider Family Medicine | DX: Z46.1 Encounter for fitting and adjustment of hearing aid (principal); H90.3 Sensorineural hearing loss, bilateral | CPT/HCPCS: 92593 ==

== ENCOUNTER 2024-03-11 10:20 | Outpatient (REF) | payer MEDICARE, OTHER, SELFPAY ==
[2024-03-11 14:02] LABS: Appearance Urine Clear; Color Urine Yellow; Glucose Urine UA Negative (Negative); Leukocyte Esterase Urine Negative (Negative); Nitrite Urine Negative (Negative); Specific Gravity - Urine 1.015 (1.005-1.025); Urine Blood Negative (Negative); Urine Ketones Negative (Negative); Urine Protein Negative (Neg-Trace)
[2024-03-11 14:32] LABS: Estimated Average Glucose 114 mg/dL; Hemoglobin A1c % 5.6 % (<6.0)
[2024-03-11 14:46] LABS: Microalbum/Creatinine Ratio Ur 7.8 ug/mg cr (<30)
== END 2024-03-11 10:21 | disposition home or self-care (01) ==
LOC: HO.WFDLDS 10:20
PROVIDERS: Visit Provider Family Medicine
DX: Z00.00 Encounter for general adult medical examination without abnormal findings (principal); R73.01 Impaired fasting glucose; R73.03 Prediabetes; I10 Essential (primary) hypertension
CPT/HCPCS: 36415; 81003; 82043; 82570; 83036

== ENCOUNTER 2024-03-15 09:44 | Outpatient (REF) | payer MEDICARE, OTHER, SELFPAY ==
[2024-03-15 14:15] LABS: Anion Gap 13 (12-20); Blood Urea Nitrogen 18 mg/dL (9-16); Calcium 9.5 mg/dL (8.4-10.2); Carbon Dioxide 25 mmol/L (22-29); Chloride 104 mmol/L (96-108); Estimated Glomerular Filt Rate 56; Glucose Fasting 118 mg/dL (60-99); Potassium 4.1 mmol/L (3.3-5.1); Sodium 138 mmol/L (135-145)
== END 2024-03-15 09:45 | disposition home or self-care (01) ==
LOC: HO.WFDLDS 09:44
PROVIDERS: Visit Provider Family Medicine
DX: R73.03 Prediabetes (principal)
CPT/HCPCS: 36415; 80048

== ENCOUNTER 2024-09-06 08:37 | Outpatient (REF) | payer MEDICARE, OTHER, SELFPAY ==
[2024-09-06 11:21] LABS: MANUAL DIFF FLAG NO
[2024-09-06 11:30] LABS: Appearance Urine Clear; Color Urine Yellow; Glucose Urine UA Negative (Negative); Leukocyte Esterase Urine Negative (Negative); Nitrite Urine Negative (Negative); PH 8.5 (5.0-9.0); Specific Gravity - Urine 1.015 (1.005-1.025); Urine Blood Negative (Negative); Urine Ketones Negative (Negative); Urine Protein Negative (Neg-Trace)
[2024-09-06 11:45] LABS: Basophils Absolute Auto 0.1 X10*3/uL (0.0-0.2); Basophils Percent Auto 0.7 % (0-2); Eosinophils Absolute Auto 0.1 X10*3/uL (0.0-0.4); Hematocrit 43.7 % (42.0-52.0); Hemoglobin 14.8 g/dl (14.0-18.0); Imm Gran Abs Auto 0.02 X10*3/uL (0.00-0.03); Imm Gran Pct Auto 0.3 % (0.0-0.4); Lymphocytes Percent Auto 28.3 % (20-40); Mean Corpuscular HGB Conc 33.9 g/dl (31.0-36.0); Mean Corpuscular Hemoglobin 30.6 pg (27.0-33.0); Mean Corpuscular Volume 90.5 fL (80.0-98.0); Mean Platelet Volume 9.8 fL (9.4-12.4); Monocytes Absolute Auto 0.5 X10*3/uL (0.1-1.2); Monocytes Percent Auto 7.6 % (2-11); Neutrophils Absolute Auto 4.3 x10*3/uL (2.0-8.3); Neutrophils Percent Auto 61.1 % (45-73); Platelet Count 211 X10*3/uL (160-400); Red Blood Count 4.83 X10*6/uL (4.60-5.80); Red Cell Distribution Width 12.5 % (11.0-16.0)
[2024-09-06 11:46] LABS: Estimated Average Glucose 114 mg/dL; Hemoglobin A1C 150.3718 umol/L; Hemoglobin A1c % 5.6 % (<6.0); Total Hemoglobin (HGBA1C) 3942.3733 umol/L
[2024-09-06 12:12] LABS: Alanine Aminotransferase 29 U/L (0-40); Albumin Level 4.4 g/dL (3.5-5.0); Alkaline Phosphatase 57 U/L (39-117); Anion Gap 16 (12-20); Aspartate Amino Transferase 29 U/L (5-37); Bilirubin Total 0.7 mg/dL (0.0-1.0); Blood Urea Nitrogen 16 mg/dL (9-16); Calcium 9.3 mg/dL (8.4-10.2); Carbon Dioxide 27 mmol/L (22-29); Chloride 102 mmol/L (96-108); Cholesterol 183 mg/dL (<200); Estimated Glomerular Filt Rate 57; Glucose Fasting 99 mg/dL (60-99); HDL Cholesterol 60 mg/dL (>40); LDL Cholesterol Calculated 111 mg/dL (<100); Sodium 141 mmol/L (135-145); Total Protein 7.4 g/dL (6.5-8.0); Triglycerides 62 mg/dL (<150)
[2024-09-06 12:14] LABS: Prostate Specific Antigen Scr 2.29 ng/mL (<0.05-4.0)
[2024-09-06 12:18] LABS: Free T4 (Free Thyroxine) 1.03 ng/dL (0.71-1.85); Thyroid Stimulating Hormone 5.06 uIU/mL (0.32-4.0)
[2024-09-06 12:33] LABS: Creatinine Urine 142.36 mg/dL; Microalbum/Creatinine Ratio Ur 4.9 ug/mg cr (<30)
[2024-09-07 18:43] LABS: Triiodothyronine T3 Total 126 ng/dL (76-181)
== END 2024-09-06 08:38 | disposition home or self-care (01) ==
LOC: HO.WFDLDS 08:37
PROVIDERS: Visit Provider Family Medicine
DX: Z00.00 Encounter for general adult medical examination without abnormal findings (principal); E03.9 Hypothyroidism, unspecified; R73.03 Prediabetes; I10 Essential (primary) hypertension; Z12.5 Encounter for screening for malignant neoplasm of prostate; R73.01 Impaired fasting glucose
CPT/HCPCS: 36415; 80053; 80061; 81003; 82043; 82570; 83036; 84153; 84439; 84443; 84480; 85025

== ENCOUNTER 2024-09-12 11:58 | Outpatient (AMB) | payer SELFPAY ==
--- NOTE | 2024-09-12 12:09 | MHC.PC.OV ---
Vital Signs 09/12/24 12:13 Height 5 ft 11 in Weight 186 lb 4 oz BMI 26.0 BP 120/66 Blood Pressure Location Lt brachial Position Sitting Respiration 14 Pulse 70 Pulse Source Pulse Oximeter Temp 97.8 F Temp Source Oral Pulse Oximetry (%) 99 Oxygen Delivery Method Room Air Intake Visit Reasons: Ext exam with f/u labs and health maint. Intake Note: extended exam Allergies bee pollen [BEE STINGS] Allergy (Unknown, Verified 09/12/24 12:12) Shortness of Breath Medication List - Last Reconciled 09/12/24 by Gabriele Joiner MD butalbital-acetaminophen 50-325 mg 1 tab PO DAILY PRN 30 days comp.stocking,thigh,long,large As directed fexofenadine (Vanda Allergy) 180 mg PO DAILY finasteride 2.5 mg PO DAILY levothyroxine (Synthroid) 37.5 mcg (1.5 x 25 mcg) PO DAILY 90 days lisinopril 5 mg PO DAILY 90 days meloxicam 15 mg PO DAILY 30 days tamsulosin 0.8 mg (2 x 0.4 mg) PO BEDTIME topiramate 25 mg PO DAILY 30 days tramadol 50 mg PO BID PRN 7 days Tobacco use date assessed: 01/13/24 Dental Screening Dental Screen Date: 09/25/23 HPI Ext exam with f/u labs and health maint. HPI Details 69 y/o male presents for an extended exam with f/u labs and health maintenance. Labs drawn 09/06/24. Reviewed labs with pt. A1c 5.6%. Triglycerides 62. TC 183. LDL 111. HDL 60. TSH 5.06. He is on levothyroxine 37.5mcg daily. Pt notices some fatigue. Blood pressure today 120/66, 70p. He is on lisinopril 5mg daily. [facility] Medical History Back pain Hypothyroid Hypercholesteremia HTN (hypertension) Elevated PSA Surgical History History of colonoscopy History of elbow surgery History of surgery [place] teeth removed Family History Father Throat cancer Mother Cancer of anus Brother Lung cancer Prostate cancer Sister Lung cancer Sister No problems noted. Son No problems noted. Son No problems noted. Other Mental health disorder Substance use disorder Social History Housing: House Alcohol intake: current Alcohol intake frequency: holidays/special occasions only Patient Tobacco Use Status: Former Tobacco user e-Cigarette/Vaping Use: Never Used Second Hand Smoke Exposure: No service: No Current occupational status: retired Current occupational exposures/hazards: No Cognitive needs: No Hearing needs: No Vision needs: Yes (Glasses) Questionnaire PHQ-9 Over the last 2 weeks, how often have you been bothered by any of the following problems? 1. Little interest or pleasure in doing things: not at all 2. Feeling down, depressed, or hopeless: not at all 3. Trouble falling or staying asleep, or sleeping too much: not at all 4. Feeling tired or having little energy: not at all 5. Poor appetite or overeating: not at all 6. Feeling bad about yourself - or that you are a failure or have let yourself or your family down: not at all 7. Trouble concentrating on things, such as reading the newspaper or watching television: not at all 8. Moving or speaking so slowly that other people could have noticed. Or the opposite - being so fidgety or restless that you have been moving around a lot more than usual: not at all 9. Thoughts that you would be better off or of hurting yourself in some way: not at all Total score: 0 Depression Screening Interpretation: Negative Depression Screening Done: Yes 49548 - PHQ-9 Billing: Yes Source: Developed by Drs. Az Posada, Karen Sexton, Brandin Gomes and colleagues, with an educational rebecca from [employer]. Thrive Questionnaire Date Thrive assessed: 09/12/24 I am a: Patient What is your living situation today?: I have a steady place to live Within the past 12 months, did the food you bought not last and you didn't have the money to get more?: Never true Within the past 12 months, did you worry whether your food would run out before you got money to buy more?: Never true Do you have trouble paying for medicines?: No Do you have trouble getting transportation to medical appointments?: No Do you have trouble paying your heating and electricity bill?: No Do you have trouble taking care of your child, family member or friend?: No Do you have trouble with day-to-day activities such as bathing, preparing meals, shopping, managing finances, etc.?: No Are you currently unemployed and looking for a job?: No Are you interested in more education?: No Please select the resources that you would like help with: None Currently or been in a relationship where the following occur: No concerns reported THRIVE Score: 0 AUDIT C Alcohol Use Questionnaire (AUDIT-C) 1. How often do you have a drink containing alcohol?: 4 or more times a week 2. How many drinks containing alcohol do you have on a typical day when you are drinking?: 1 or 2 3. How often do you have six or more drinks on one occasion?: Never Total Score: 4 Score Reviewed/Action Taken: Yes SY-7 AMB Questionnaire SY-7 Date SY - 7 assessed: 09/12/24 Feeling nervous, anxious, or on edge: 0 = Not at all Not being able to stop or control worryin = Not at all Worrying too much about different things: 0 = Not at all Trouble relaxin = Not at all Being so restless that it is hard to sit still: 0 = Not at all Becoming easily annoyed or irritable: 0 = Not at all Feeling afraid as if something awful might happen: 0 = Not at all Total SY-7 score (0-4 normal; 5-9 mild; 10-14 moderate; 15-21 severe): 0 Source: Developed by Drs. Az Posada, Karen Sexton, Brandin Gomes and colleagues, with an educational rebecca from [employer]. SY-7 Assessment Billing SY-7 Assessment Tool: SY-7 Assessment 73546 Review of Systems Const Denies chills, Reports fatigue, Denies fever(s), Denies headache(s) and Denies weakness Eyes Denies change in vision ENT Denies dizziness, Denies headache(s), Denies hearing loss, Denies nasal congestion, Denies sinus pain, Denies sinus pressure and Denies sore throat Card Denies chest pain, Denies lightheadedness, Denies dyspnea and Denies other (palpitations) Resp Denies cough, Denies dyspnea and Denies wheezing GI Denies abdominal pain, Denies melena, Denies hematochezia, Denies change in bowel habits, Denies dyspepsia and Denies nausea Denies hematuria and Denies dysuria Musc Denies abnormal gait, Denies myalgias, Denies arthralgias, Denies numbness and Denies tingling Skin/Breast Denies rash, Denies unusual bruising and Denies wounds Neuro Denies abnormal gait, Denies dizziness, Denies headache(s), Denies memory loss, Denies numbness, Denies Sensory deficit (Neuro), Denies tingling and Denies weakness Psych Denies anxiety, Denies depression and Denies memory loss Endo Denies cold intolerance, Reports fatigue, Denies heat intolerance, Denies polydipsia and Denies polyuria Axel/Lymph Denies easy bleeding and Denies easy bruising Aller/Immun Denies wheezing Physical exam (Primary Care) Vital Signs: Last Vital Signs Temp 97.8 F 09/12/24 12:13 Pulse 70 09/12/24 12:13 Resp 14 09/12/24 12:13 BP 120/66 09/12/24 12:13 Pulse Ox 99 09/12/24 12:13 Oxygen Delivery Method Room Air 09/12/24 12:13 BMI result Body Mass Index 26.0 Tobacco/Smoking Status: Tobacco use Status Tobacco use date assessed 01/13/24 09/12/24 12:17 Patient Tobacco Use Status Former Tobacco user 09/12/24 12:17 e-Cigarette/Vaping Use Never Used 09/12/24 12:17 PHQ-9: PHQ-9 Score PHQ-9: Total score 0 09/12/24 12:21 Depression Screening Interpretation: Negative Thrive Assessment: Date of Thrive Assessment Date Thrive assessed 09/12/24 09/12/24 12:17 Currently or been in a relationship where the following occur: No concerns reported Const General: no acute distress, well developed, alert and awake Nutritional Appearance: well nourished Orientation/consciousness: patient oriented x3 HENMT Head: Yes normocephalic and Yes atraumatic Ears: hearing grossly normal bilaterally and TM's normal bilaterally General nose exam: Normal external nose present and Normal nares present Mouth: Normal oral and palatal mucosa present and moist mucous membranes Teeth and gingiva: dentition normal Throat: Yes posterior oropharynx normal Eyes General: appearance normal, both eyes and all related structures Pupils: Equal, round and reactive pupils present and Pupil accommodation reflex normal EOM: EOMs intact bilaterally Neck Neck: Yes normal visual inspection, Yes no lymphadenopathy and Yes trachea midline Thyroid: Thyroid normal Carotids: no bruits Lymphatic: no lymphadenopathy noted Chest Chest palpation & inspection: normal inspection of the chest Resp Effort & Inspection: normal respiratory effort Auscultation: clear to auscultation bilaterally Cardio Rate: regular rate Rhythm: regular rhythm Heart sounds: S1 normal heart sound present, S2 normal heart sound present, no gallops, no murmurs and no rubs Bruits: no abdominal aortic bruits and no carotid bruits GI Palpation (GI): No Abdominal aortic bruit present, Soft to palpation, nontender, No hepatosplenomegaly present and No Rebound tenderness present Auscultation: normal bowel sounds General: Yes no CVA tenderness Back/Spine/Pelvis Back: no CVA tenderness Cervical Spine: cervical ROM normal and No Cervical spine tenderness Thoracic/Lumbar Spine: thoraco-lumbar ROM normal, No pain with thoraco-lumbar ROM, No thoracic spinal tenderness and No lumbar spinal tenderness Skin Lesions: no lesions Rashes: no rashes Trauma: no lacerations or abrasions Wounds: no wounds Nails: normal Neuro General: patient oriented x3 Cranial nerves: Yes Equal, round and reactive pupils present Cognition (Neuro): normal cognition Gait exam (Neuro): Normal gait present Motor exam (neuro): 5/5 motor strength present throughout Sensory Exam: No Sensory deficit (Neuro) Deep tendon reflexes (DTR's): Right patellar reflex intensity grade: 2+ and Left patellar reflex intensity grade: 2+ Extrem General: Yes normal to inspection and No edema Psych Appearance: grossly normal Affect: normal affect Attitude: cooperative Thought process: Normal thought process present Coding Level of Care Code Est Pt Level 4 (90142) Diagnoses Pre-diabetes R73.03 HTN (hypertension) I10 Hypercholesteremia E78.00 Hypothyroid E03.9 Screening for colon cancer Z12.11 Screening for prostate cancer Z12.5 Adult general medical exam Z00.00 Additional Codes SY-7 Assessment Billing - SY-7 Assessment Tool: SY-7 Assessment 11225 ([id number]) PHQ-9 - 46087 - PHQ-9 Billing: Yes ([id number]) Assessment & Plan Assessment & Plan (1) Pre-diabetes: Code(s): R73.03 - Prediabetes Category: Medical Plan: A1c?5.6% Continue?to?work?at?diet?low?in?sugars?and?starches Continue?exercise?and?active?lifestyle.??Continue?weight?control (2) HTN (hypertension): Code(s): I10 - Essential (primary) hypertension Category: Medical Plan: Blood?pressure?is?controlled.??Goal?is?less?than?140/90 Continue?current?medication (3) Hypercholesteremia: Code(s): E78.00 - Pure hypercholesterolemia, unspecified Category: Medical Plan: LDL?cholesterol?is?above?goal?of?less?100 Recommend?he?work?on?a?diet?lower?in?saturated?fats?and?cholesterol Will?follow (4) Hypothyroid: Code(s): E03.9 - Hypothyroidism, unspecified Category: Medical Plan: TSH?was?elevated. Patient?also?notices?some?fatigue. ?No?symptoms?of?sleep Possibly?symptomatic Will?repeat?thyroid?hormone?levels.??Will?follow-up?telemedicine?if?levels?are?still?off,?will?adjust?his?medication. (5) Screening for colon cancer: Code(s): Z12.11 - Encounter for screening for malignant neoplasm of colon Category: Medical Plan: Patient?is?followed?by??and?has?history?of?tubular?adenoma. Saw??in?2020?in?peers?he?intended?to?schedule?him?for?a?follow-up?colonoscopy?but?does?not?seem?to?have?had?this?follow-up. I?recommended?he?call? (6) Screening for prostate cancer: Code(s): Z12.5 - Encounter for screening for malignant neoplasm of prostate Category: Medical Plan: PSA?is?within?normal?limits Will?continue?annual?screening (7) Adult general medical exam: Code(s): Z00.00 - Encounter for general adult medical examination without abnormal findings Category: Medical Plan: 69-year-old?male?presents?for?extended?exam Encouraged?healthy?diet?with?active?lifestyle?and?plenty?of?exercise Orders: Orders Triiodothyronine T3 Total Today E03.9 - Hypothyroidism, unspecified Thyroid Stimulating Hormone Today E03.9 - Hypothyroidism, unspecified Comprehensive Met. Panel Today E03.9 - Hypothyroidism, unspecified Free T4 (Free Thyroxine) Today E03.9 - Hypothyroidism, unspecified
[2024-09-12 12:13] VITALS: BP 120/66; PULSE 70; RESP 14; TEMP 36.6; O2SAT 99; BMI 26.0
== END 2024-09-12 13:16 | disposition home or self-care (01) ==
PROVIDERS: PCP Family Medicine; Visit Provider Family Medicine
DX: R73.03 Prediabetes (principal); I10 Essential (primary) hypertension; E78.00 Pure hypercholesterolemia, unspecified; E03.9 Hypothyroidism, unspecified; Z12.11 Encounter for screening for malignant neoplasm of colon; Z12.5 Encounter for screening for malignant neoplasm of prostate; Z00.00 Encounter for general adult medical examination without abnormal findings

== ENCOUNTER → 2024-09-12 11:58 | Outpatient (BNVA) | payer MEDICARE, OTHER, SELFPAY | PROVIDERS: PCP Family Medicine; Visit Provider Family Medicine | DX: R73.03 Prediabetes (principal); E78.00 Pure hypercholesterolemia, unspecified; I10 Essential (primary) hypertension; E03.9 Hypothyroidism, unspecified | CPT/HCPCS: 96127; 99212 ==

== ENCOUNTER 2024-09-23 07:34 | Outpatient (REF) | payer MEDICARE, OTHER, SELFPAY ==
[2024-09-23 11:45] LABS: Alanine Aminotransferase 29 U/L (0-40); Albumin Level 4.1 g/dL (3.5-5.0); Alkaline Phosphatase 58 U/L (39-117); Anion Gap 10 (12-20); Aspartate Amino Transferase 29 U/L (5-37); Bilirubin Total 0.7 mg/dL (0.0-1.0); Blood Urea Nitrogen 18 mg/dL (9-16); Calcium 9.1 mg/dL (8.4-10.2); Carbon Dioxide 28 mmol/L (22-29); Chloride 105 mmol/L (96-108); Estimated Glomerular Filt Rate > 60; Glucose Random 102 mg/dL (60-115); Sodium 139 mmol/L (135-145); Thyroid Stimulating Hormone 4.13 uIU/mL (0.32-4.0); Total Protein 7.1 g/dL (6.5-8.0)
[2024-09-24 05:08] LABS: Triiodothyronine T3 Total 105 ng/dL (76-181)
== END 2024-09-23 07:35 | disposition home or self-care (01) ==
LOC: HO.WFDLDS 07:34
PROVIDERS: Visit Provider Family Medicine
DX: E03.9 Hypothyroidism, unspecified (principal)
CPT/HCPCS: 36415; 80053; 84439; 84443; 84480

== ENCOUNTER 2024-10-10 10:19 | Outpatient (REF) | payer MEDICARE, OTHER, SELFPAY ==
--- OUTSIDE RECORDS SUMMARY | 2024-10-10 11:37 | XMS_ITS | Patient Health Record ---
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 Name Role Phone Gabriele Joiner Primary Care Provider Unavailab Az Reynoso Unavailable [phone] Reason For Referral No Information Medications Medication SIG (Take, Route, Frequency, Duration) Notes Start Date End Date Status Multivitamin Adult - as directed Orally Active Tamsulosin HCl 0.4 MG 2 QD Orally Once a day Active Montelukast Sodium 10 MG TAKE 1 TABLET BY MOUTH EVERY DAY Oral for 30 PRN for allergy shots Active Fioricet 50-300-40 MG 1 capsule as neede d Orally every 4 hrs Active Finasteride 5 MG TK 1 T PO ONCE DAILY Oral for 90 Active HYDROcodone-Acetaminoph en 5-325 MG (Schedule II Drug) TAKE 1 TABLET BY MOUTH AT BEDTIME IF NEEDED FOR PAIN Oral for 7 PRN back pain Active Levothyroxine Sodium 25 MCG 1 tablet in the morning on an empty stomach Orally Once a day for 30 day(s) Active Lisinopril 5 MG 1 tablet Orally Once a day for 30 day(s) Active Immunizations Vaccine Route Administration Date Status Comme nts Influenza Unknown 04/03/2020 Administered Problems Problem Type SNOMED Code ICD Code Onset Dates Problem Status W/U Status Risk Notes Problem Screening for malignant neoplasm of colon ([id number]) Encounter for screening for malignant neoplasm of colon (Z12.11) Active confirmed Problem History of adenomatous polyp of colon (876017625) History of adenomatous polyp of colon (Z86.010) Active confirmed Problem Preprocedural examination ([id number]) Preprocedural examination (Z01.818) Active confirmed Plan Of Treatment Pending Test Test Name Order Date Pathology 09/19/2020 Future Test Test Name Order Date COLONOSCOPY 05/31/2014 COLONOSCOPY 08/30/2020 Insurance Providers Payer Name Payer Address Payer Phone Subscriber Number Group Number Insured Name Patient Relationship to Insured Coverage Start Date Coverage End Date MEDICARE OF [place] [address] [place] [address] [id number] SCHUYLER CORNELL Self - patient is the insured [facility] [address] [place] [phone] [id number] SCHUYLER CORNELL Self - patient is the insured Medical (General) History Medical History History ICD Code Colonoscopy 04-01-2004--hyperplastic poly ps, small internal hemorrhoids Denies DE,DM,CVA,Lung disease,renal dise ase BPH Colonoscopy 06/2014 with a small tubular adenoma HTN Hypothyroidism Surgical History Surgery Date(Month/Year) Broken elbow x 2 Vasectomy
[2024-10-10 15:10] LABS: Anion Gap 11 (12-20); Blood Urea Nitrogen 18 mg/dL (9-16); Calcium 9.1 mg/dL (8.4-10.2); Carbon Dioxide 27 mmol/L (22-29); Chloride 105 mmol/L (96-108); Estimated Glomerular Filt Rate > 60; Glucose Random 93 mg/dL (60-115); Potassium 4.1 mmol/L (3.3-5.1); Sodium 139 mmol/L (135-145)
[2024-10-10 15:22] LABS: Free T4 (Free Thyroxine) 1.07 ng/dL (0.71-1.85)
[2024-10-11 04:38] LABS: Triiodothyronine T3 Total 101 ng/dL (76-181)
== END 2024-10-10 10:20 | disposition home or self-care (01) ==
LOC: HO.WFDLDS 10:19
PROVIDERS: Physician Assistant; Visit Provider Family Medicine
DX: C61 Malignant neoplasm of prostate (principal); Z00.00 Encounter for general adult medical examination without abnormal findings; E03.9 Hypothyroidism, unspecified; Z12.5 Encounter for screening for malignant neoplasm of prostate
CPT/HCPCS: 36415; 80048; 84153; 84439; 84443; 84480

== ENCOUNTER 2024-10-11 14:05 | Outpatient (AMB) | payer MEDICARE, OTHER, SELFPAY ==
--- NOTE | 2024-10-11 12:52 | MHC.PC.OV ---
Intake Visit Reasons: f/u hypothyroid via telemedicine Motorcycle Builder Required: No Allergies bee pollen [BEE STINGS] Allergy (Unknown, Verified 10/11/24 12:52) Shortness of Breath Medication List - Last Reconciled 10/11/24 by Gabriele Joiner MD butalbital-acetaminophen 50-325 mg 1 tab PO DAILY PRN 30 days comp.stocking,thigh,long,large As directed fexofenadine (Vanda Allergy) 180 mg PO DAILY finasteride 2.5 mg PO DAILY levothyroxine 50 mcg PO DAILY 90 days lisinopril 5 mg PO DAILY 90 days tamsulosin 0.8 mg (2 x 0.4 mg) PO BEDTIME topiramate 25 mg PO DAILY 30 days tramadol 50 mg PO BID PRN 7 days Tobacco use date assessed: 01/13/24 Dental Screening Dental Screen Date: 09/25/23 HPI f/u hypothyroid via telemedicine HPI Details 69 y/o male presents to f/u hypothyroidism via telemedicine. Labs drawn 10/10/24. Reviewed labs with pt. TSH 4.50 which worsened from 4.13 in September. He is on levothyroxine 37.5 mcg daily. [facility] Medical History Back pain Hypothyroid Hypercholesteremia HTN (hypertension) Elevated PSA Surgical History History of colonoscopy History of elbow surgery History of surgery Carmine teeth removed Family History Father Throat cancer Mother Cancer of anus Brother Lung cancer Prostate cancer Sister Lung cancer Sister No problems noted. Son No problems noted. Son No problems noted. Other Mental health disorder Substance use disorder Social History Housing: House Alcohol intake: current Alcohol intake frequency: holidays/special occasions only Patient Tobacco Use Status: Former Tobacco user e-Cigarette/Vaping Use: Never Used Second Hand Smoke Exposure: No service: No Current occupational status: retired Current occupational exposures/hazards: No Cognitive needs: No Hearing needs: No Vision needs: Yes (Glasses) Questionnaire Thrive Questionnaire Date Thrive assessed: 09/12/24 SY-7 AMB Questionnaire SY-7 Date SY - 7 assessed: 09/12/24 Source: Developed by Drs. Az Posada, Karen Sexton, Brandin Gomes and colleagues, with an educational rebecca from [employer]. Review of Systems Const Denies chills, Denies fatigue, Denies fever(s), Denies headache(s) and Denies weakness ENT Denies dizziness and Denies headache(s) Card Denies dyspnea Resp Denies cough, Denies dyspnea, Denies wheezing and Denies other (shortness of breath) Musc Denies numbness and Denies tingling Neuro Denies dizziness, Denies headache(s), Denies numbness, Denies tingling and Denies weakness Psych Denies anxiety and Denies depression Endo Denies fatigue Aller/Immun Denies wheezing Physical exam (Primary Care) Tobacco/Smoking Status: Tobacco use Status Tobacco use date assessed 01/13/24 10/11/24 12:54 Patient Tobacco Use Status Former Tobacco user 10/11/24 12:54 e-Cigarette/Vaping Use Never Used 10/11/24 12:54 Thrive Assessment: Date of Thrive Assessment Date Thrive assessed 09/12/24 10/11/24 12:54 Telehealth Telehealth Telehealth Platform: Telephone Location of provider rendering services: practice address Location of patient: address on file Patient Identification confirmed using: Name, : Yes Telehealth method: voice only Patient verbally consented to treatment: Yes Patient verbally consented to billing insurance company: Yes Patient informed of any privacy concerns related to visit: Yes Minutes spent on Phone/Video with Pt.: 9 Coding Level of Care Code Tele Est Pt Level 2 (89003) Diagnoses Hypothyroid E03.9 Pre-diabetes R73.03 Assessment & Plan Assessment & Plan (1) Hypothyroid: Code(s): E03.9 - Hypothyroidism, unspecified Category: Medical Plan: TSH?is?still?elevated He?will?increase?levothyroxine?from?37.5?mcg?daily?to?50?mcg?daily Will?recheck?thyroid?hormone?levels?in?about?2?months. (2) Pre-diabetes: Code(s): R73.03 - Prediabetes Category: Medical Plan: Random?blood?sugar?at?last?check?was?within?normal?range. Most?recent?A1c?was?5.6%. We?will?recheck?A1c?with?his?next?visit. Orders: Orders Free T4 (Free Thyroxine) Today E03.9 - Hypothyroidism, unspecified Thyroid Stimulating Hormone Today E03.9 - Hypothyroidism, unspecified Basic Metabolic Panel Today E03.9 - Hypothyroidism, unspecified, Z00.00 - Encounter for general adult medical examination without abnormal findings Triiodothyronine T3 Total Today E03.9 - Hypothyroidism, unspecified Medications: Changed From levothyroxine (Synthroid) 37.5 mcg (1.5 x 25 mcg) PO DAILY 90 days 135 tabs 2RF E03.9 - Hypothyroidism, unspecified To levothyroxine 50 mcg PO DAILY 90 tabs 2RF 90 days E03.9 - Hypothyroidism, unspecified
--- OUTSIDE RECORDS SUMMARY | 2024-10-11 17:15 | XMS_ITS | Patient Health Record ---
Author Organization [facility] Address [address] [place] [address] Care Team Providers Care Paraffin Plant Operator Name Role Phone Gabriele Joiner Primary Care Provider Unavailab Az Reynoso Unavailable [phone] Reason For Referral No Information Medications Medication [...] Problem Screening for malignant neoplasm of colon (237858677) Encounter for screening for malignant neoplasm of colon (Z12.11) Active confirmed Problem History of adenomatous polyp of colon (114409650) History of adenomatous polyp of colon (Z86.010) Active confirmed Problem Preprocedural examination (760576511237737) Preprocedural examination (Z01.818) Active confirmed Plan Of Treatment Pending Test Test Name Order Date Pathology 09/19/2020 Future Test Test Name Order Date COLONOSCOPY 05/31/2014 COLONOSCOPY 08/30/2020 Insurance Providers Payer Name Payer Address Payer Phone Subscriber Number Group Number Insured Name Patient Relationship to Insured Coverage Start Date Coverage End Date MEDICARE OF [place] [address] [place] [address] [id number] SCHUYLER CORNELL Self - patient is the insured [facility] [address] [place] [phone] [id number] SCHUYLER CORNELL Self - patient is the insured Medical (General) History Medical History History ICD Code Colonoscopy 04-01-2004--hyperplastic poly ps, small internal hemorrhoids Denies PR,DM,CVA,Lung disease,renal dise ase BPH Colonoscopy 06/2014 with a small tubular adenoma HTN Hypothyroidism Surgical History Surgery Date(Month/Year) Broken elbow x 2 Vasectomy
== END 2024-10-11 17:05 | disposition home or self-care (01) ==
LOC: HO.HMCFM 14:05
PROVIDERS: PCP Family Medicine; Visit Provider Family Medicine
DX: E03.9 Hypothyroidism, unspecified (principal); R73.03 Prediabetes

== ENCOUNTER 2025-02-14 14:32 | Outpatient (REF) | payer SELFPAY ==
--- OUTSIDE RECORDS SUMMARY | 2025-02-14 15:52 | XMS_ITS | Patient Health Record ---
Author Organization [facility] Address [address] [place] [address] Care Team Providers Care Manufacturers Service Representative Name Role Phone Gabriele Joiner Primary Care Provider Unavailab Az Reynoso Unavailable [phone] Reason For Referral No Information Medications Medication [...] Problem Screening for malignant neoplasm of colon (746402745) Encounter for screening for malignant neoplasm of colon (Z12.11) Active confirmed Problem History of adenomatous polyp of colon (122371449) History of adenomatous polyp of colon (Z86.010) Active confirmed Problem Preprocedural examination (527421744604576) Preprocedural examination (Z01.818) Active confirmed Plan Of Treatment Pending Test Test Name Order Date Pathology 09/19/2020 Future Test Test Name Order Date COLONOSCOPY 05/31/2014 COLONOSCOPY 08/30/2020 Next Appt Details Provider Name:Az Parrish , 06/27/2025 09:50:00 AM, [address], [address], [place], [address], Insurance Providers Payer Name Payer Address Payer Phone Subscriber Number Group Number Insured Name Patient Relationship to Insured Coverage Start Date Coverage End Date MEDICARE OF [place] [address] [place] [address] [id number] SCHUYLER CORNELL Self - patient is the insured [facility] [address] [place] [phone] [id number] ANETA SCHUYLER Self - patient is the insured Medical (General) History Medical History History ICD Code Colonoscopy 04-01-2004--hyperplastic poly ps, small internal hemorrhoids Denies [place],DM,CVA,Lung disease,renal dise ase BPH Colonoscopy 06/2014 with a small tubular adenoma HTN Hypothyroidism Surgical History Surgery Date(Month/Year) Broken elbow x 2 Vasectomy
--- NOTE | 2025-02-14 15:58 | MHC.AU.HA3 ---
Hearing Instrument Follow-Up- Binaural Date of Visit: 02/14/25 Right Ear: Make, Model, Color, Serial Number: Oticon Intent 2 miniRITE-R [id number] Color: Steel lee Supervisor Joiners Repair Warranty: 12/11/2026 Supervisor Joiners Loss and Damage Warranty: 12/11/2026 [facility] Service Plan: OPTED OUT Battery Size: Rechargeable Senior Integration Architect/Slim Tube: 2/85 Earmold/Dome/CShell/SlimTip:8mm open valdez dome (no retention tail) Type of Wax Guard: miniFit Dispensed By: [facility] Date of Fittin12/04/2023 Left Ear: Make, Model, Color, Serial Number: Oticon Intent 2 miniRITE-R SN: [id number] Color: Steel lee Supervisor Joiners Repair Warranty: 12/11/2026 Supervisor Joiners Loss and Damage Warranty: 12/11/2026 [facility] Service Plan: OPTED OUT Battery Size: Rechargeable Senior Integration Architect/Slim Tube: 2/85 Earmold/Dome/CShell/SlimTip: 8mm open valdez dome (no retention tail) Type of Wax Guard: miniFit Dispensed By: [facility] Date of Fittin12/04/2023 Follow-Up Summary: Reported constant static in left HAYS. Could not replicate in office. Cleaned both HAs, replaced domes and wax guards. Vacuumed microphones. Ran through dehumidifier. Replaced left java support engineer just in case. Listening check demonstrated both HAs amplifying clearly. After discussing issue again, Daniel reported he only heard static while streaming from cell phone. Firmware update available - updated. Tested streaming in office - no static, clear sound. Recommendations: Hearing instrument follow-up or maintenance as needed. Please contact our clinic with any questions or concerns. Patient will call if problems persist. Diagnosis Code(s): Primary Diagnosis: H90.3 Bilateral Sensorineural Hearing Loss Signature: Provider: Nohemy Suazo, [facility]
== END 2025-02-14 14:33 | disposition home or self-care (01) ==
LOC: HO.HAP 14:32
PROVIDERS: Visit Provider Family Medicine
DX: Z46.1 Encounter for fitting and adjustment of hearing aid (principal); H90.3 Sensorineural hearing loss, bilateral
CPT/HCPCS: 92593; V5267

== ENCOUNTER 2025-03-07 09:11 | Outpatient (REF) | payer MEDICARE, OTHER, SELFPAY ==
--- OUTSIDE RECORDS SUMMARY | 2025-03-07 09:29 | XMS_ITS | Patient Health Record ---
Author Organization [facility] Address [address] [place] [address] Care Team Providers Care Oceanology Teacher Name Role Phone Gabriele Joiner Primary Care Provider Unavailab Az Reynoso Unavailable [phone] Reason For Referral No Information Medications Medication [...] Problem Status W/U Status Risk Notes Problem Encounter for screening for malignant neoplasm of colon (Z12.11) Active confirmed Problem History of adenomatous polyp of colon (214247551) History of adenomatous polyp of colon (Z86.010) Active confirmed Problem Preprocedural examination (225359785028582) Preprocedural examination (Z01.818) Active confirmed Plan Of Treatment Pending Test Test Name Order Date Pathology 09/19/2020 Future Test Test Name Order Date COLONOSCOPY 05/31/2014 COLONOSCOPY 08/30/2020 Next Appt Details Provider Name:Az Parrish , 06/27/2025 09:50:00 AM, [address] [facility], [address], [place], [address], Insurance Providers Payer Name Payer Address Payer Phone Subscriber Number Group Number Insured Name Patient Relationship to Insured Coverage Start Date Coverage End Date MEDICARE OF [place] [address] [place] [address] [phone] [id number] CORNELLSCHUYLER YOUNG Self - patient is the insured [facility] [address] [place] [address] [phone] [id number] SCHUYLER CORNELL Self - patient is the insured Medical (General) History Medical History History ICD Code Colonoscopy 04-01-2004--hyperplastic poly ps, small internal hemorrhoids Denies [place],DM,CVA,Lung disease,renal dise ase BPH Colonoscopy 06/2014 with a small tubular adenoma HTN Hypothyroidism Surgical History Surgery Date(Month/Year) Broken elbow x 2 Vasectomy
--- OUTSIDE RECORDS SUMMARY | 2025-03-07 09:29 | XMS_ITS | Encounter Summary ---
Author Organization [facility] Address [address] [facility] [facility] [address] [place] [phone] Phone Care Team Providers Care Machine Setter Sheet Metal Name Role Phone Gabriele Joiner MD Primary Care Provider Encounter Details Date Type Department Care Team (Late st Contact Info) Description 05/19/2023 Ancillary Orders [facility], X-Ray - [address] [address] Jamila Toney PA [address] [place] [id number] [email or web address] Low back pain, unspecified back pain laterality, unspecified chronicity, unspecified whether sciatica present Social History Tobacco Use Types Packs/Day Years Used Date Smoking Tobacco: Never Assessed Education Answer Date Recorded Are you interested in more education? Not on francois e 11/29/2022 Are you concerned about learning? Not on file 11/29/2022 No 11/29/2022 No 11/29/2022 Digital Access Answer Date Recorded No 12/30/2022 No 12/30/2022 Reliable internet access at home? Not on file 12/30/2022 Device with a working camera? Not on file Sex and Gender Information Value Date Recorded Sex Assigned at Not on file Legal Sex Male 4:18 PM EDT Gender Identity Not on file Sexual Orientation Not on file documented as of this encounter Plan of Treatment Not on file documented as of this encounter Results * XR LUMBOSACRAL SPINE 4 OR MORE VIEWS (05/19/2023 9:26 AM EDT) Anatomical Region Laterality Modality L-spine Computed Radiogr aphy 05/21/2023 4:07 PM EDT Impressions 05/21/2023 4:10 PM EDT Degenerative changes. No acute osseous abnormality. Narrative 05/21/2023 4:10 PM EDT XR LUMBOSACRAL SPINE 4 OR MORE VIEWS COMPARISON: None FINDINGS: Discs and endplates: Moderate multilevel disc height loss with endplate osteophytes. No listhesis. Facet joints: Severe L4-5 and L5-S1 facet osteoarthrosis. Vertebral bodies: No compression fracture. Procedure Note Brea Mckeon MD - 05/21/2023 XR LUMBOSACRAL SPINE 4 OR MORE VIEWS COMPARISON: None FINDINGS: Discs and endplates: Moderate multilevel disc height loss with endplateosteophytes. No listhesis. Facet joints: Severe L4-5 and L5-S1 facet osteoarthrosis. Vertebral bodies: No compression fracture. IMPRESSION: Degenerative changes. No acute osseous abnormality. Jamila MEDINA IMG XR SPINE Final Result documented in this encounter Visit Diagnoses Diagnosis Low back pain, unspecified back pain laterality, unspecified chronicity, unspecified whether sciatica present Low back pain, unspecified back pain laterality, unspecified chronicity, unspecified whether sciatica present documented in this encounter Care Teams Machine Setter Sheet Metal Relationship Specialty Start Date End Date Gabriele Joiner MD [address] [place] [id number] PCP - General Family Medicine 06/19/22 documented as of this encounter Additional Source Comments The information contained in this document represents components of the legal health record. It is not the complete legal health record.[facility]
[2025-03-07 12:09] LABS: Anion Gap 8 (12-20); Blood Urea Nitrogen 18 mg/dL (9-16); Calcium 8.7 mg/dL (8.4-10.2); Carbon Dioxide 28 mmol/L (22-29); Chloride 108 mmol/L (96-108); Estimated Glomerular Filt Rate > 60; Potassium 4.2 mmol/L (3.3-5.1); Sodium 140 mmol/L (135-145)
[2025-03-07 12:11] LABS: Free T4 (Free Thyroxine) 0.93 ng/dL (0.71-1.85); Thyroid Stimulating Hormone 2.36 uIU/mL (0.32-4.0)
== END 2025-03-07 09:12 | disposition home or self-care (01) ==
LOC: HO.WFDLDS 09:11
PROVIDERS: Visit Provider Family Medicine
DX: Z00.00 Encounter for general adult medical examination without abnormal findings (principal); E03.9 Hypothyroidism, unspecified
CPT/HCPCS: 36415; 80048; 84439; 84443; 84480

== ENCOUNTER 2025-03-10 11:20 | Outpatient (REF) | payer SELFPAY ==
--- OUTSIDE RECORDS SUMMARY | 2025-03-10 11:22 | XMS_ITS | Patient Health Record ---
Author Organization [facility] Address [address] [place] [address] Care Team Providers Care Truck Manager Name Role Phone Gabriele Joiner Primary Care Provider Unavailab Az Reynoso Unavailable [phone] Reason For Referral No Information Medications Medication [...] Problem History of adenomatous polyp of colon (778614090) History of adenomatous polyp of colon (Z86.010) Active confirmed Problem Preprocedural examination (166602319251950) Preprocedural examination (Z01.818) Active confirmed Plan Of Treatment Pending Test Test Name Order Date Pathology 09/19/2020 Future Test Test Name Order Date COLONOSCOPY 05/31/2014 COLONOSCOPY 08/30/2020 Next Appt Details Provider Name:Az Parrish , 06/27/2025 09:50:00 AM, [address] [facility], [address], [place], [address], Insurance Providers Payer Name Payer Address Payer Phone Subscriber Number Group Number Insured Name Patient Relationship to Insured Coverage Start Date Coverage End Date MEDICARE OF [place] [address] [place] [address] [id number] CORNELLSCHUYLER YOUNG Self - patient is the insured [facility] [address] [place] [phone] [id number] SCHUYLER CORNELL Self - patient is the insured Medical (General) History Medical History History ICD Code Colonoscopy 04-01-2004--hyperplastic poly ps, small internal hemorrhoids Denies [place],DM,CVA,Lung disease,renal dise ase BPH Colonoscopy 06/2014 with a small tubular adenoma HTN Hypothyroidism Surgical History Surgery Date(Month/Year) Broken elbow x 2 Vasectomy
--- OUTSIDE RECORDS SUMMARY | 2025-03-10 11:22 | XMS_ITS | Encounter Summary ---
Author Organization [facility] Address [address] [facility] [address] [place] [phone] Phone Care Team Providers Care Tankman Name Role Phone Gabriele Joiner MD Primary Care Provider Encounter Details Date Type Department Care Team (Late st Contact Info) Description 05/19/2023 Ancillary Orders [facility], X-Ray - [address] [address] Jamila Toney PA [address] [place] [id number] [email or web address] Low back pain, unspecified back pain laterality, [...] present documented in this encounter Care Teams Tankman Relationship Specialty Start Date End Date Gabriele Joiner MD [address] [place] [phone] PCP - General Family Medicine 06/19/22 documented as of this encounter Additional Source Comments The information contained in this document represents components of the legal health record. It is not the complete legal health record.[facility]
== END 2025-03-10 11:21 | disposition home or self-care (01) ==
LOC: HO.HAP 11:20
PROVIDERS: Visit Provider Family Medicine
DX: Z13.89 Encounter for screening for other disorder (principal)

== ENCOUNTER 2025-03-13 08:34 | Outpatient (AMB) | payer MEDICARE, OTHER, SELFPAY ==
--- NOTE | 2025-03-13 08:35 | A.OFFPC_ITS ---
Vital Signs 03/13/25 08:39 Height 5 ft 11 in Weight 184 lb 4 oz BMI 25.7 BP 130/60 Blood Pressure Location Lt brachial Position Sitting Respiration 12 Pulse 65 Pulse Source Pulse Oximeter Temp 96.6 F L Temp Source Oral Pulse Oximetry (%) 98 Oxygen Delivery Method Room Air Intake Visit Reasons: f/u chronic conditions Intake Note: follow up on labs Waiter/Waitress Club Required: No Allergies bee pollen (BEE STINGS) Allergy (Unknown, Verified 03/13/25 08:36) Shortness of Breath Medication List - Last Reconciled 03/13/25 by Gabriele Joiner MD butalbital-acetaminophen 50-325 mg 1 tab PO DAILY PRN 30 days comp.stocking,thigh,long,large As directed fexofenadine (Vanda Allergy) 180 mg PO DAILY finasteride 2.5 mg PO DAILY levothyroxine 50 mcg PO DAILY 90 days lisinopril 5 mg PO DAILY 90 days tamsulosin 0.8 mg (2 x 0.4 mg) PO BEDTIME topiramate 25 mg PO DAILY 30 days tramadol 50 mg PO BID PRN 7 days Tobacco use date assessed: 03/13/25 Fall risk assessment: No Falls in past year Last assessed Fall Risk: 03/13/25 Dental Screening Dental Screen Date: 03/13/25 Did you have a dental visit in the last 12 months?: Yes Did you have a dental problem in the last 6 months where you did not have access to dental care?: No Was dental information given to patient?: Patient has dentist HPI f/u chronic conditions HPI Details 69 y/o male [facility] Had increased his levothyroxine from 37.5 mcg to 50 mcg daily. Hx of pre-diabetes. A1c today 03/13/25 is 5.5%. Labs drawn . TSH improved from 4.50 to 2.36 uIU/mL, Free T4 0.93. Total T3 106 ng/dL. HPI Comments History of Present Illness Details Documentation assistance for Gabriele Joiner MD, was provided by Kristian Rivas, Truck Rental Manager on 03/13/2025 at 8:49 AM EST. I, Dr. Joiner, have read, observed, and verified documentation. [facility] Medical History Back pain Hypothyroid Hypercholesteremia HTN (hypertension) Elevated PSA Surgical History History of colonoscopy History of elbow surgery History of surgery [place] teeth removed Family History Father Throat cancer Mother Cancer of anus Brother Lung cancer Prostate cancer Sister Lung cancer Sister No problems noted. Son No problems noted. Son No problems noted. Other Mental health disorder Substance use disorder Social History Housing: House Alcohol intake: current Alcohol intake frequency: holidays/special occasions only Patient Tobacco Use Status: Former Tobacco user e-Cigarette/Vaping Use: Never Used Second Hand Smoke Exposure: No service: No Current occupational status: retired Current occupational exposures/hazards: No Cognitive needs: No Hearing needs: No Vision needs: Yes (Glasses) Questionnaire PHQ-9 Over the last 2 weeks, how often have you been bothered by any of the following problems? 1. Little interest or pleasure in doing things: not at all 2. Feeling down, depressed, or hopeless: not at all 3. Trouble falling or staying asleep, or sleeping too much: not at all 4. Feeling tired or having little energy: not at all 5. Poor appetite or overeating: not at all 6. Feeling bad about yourself - or that you are a failure or have let yourself or your family down: not at all 7. Trouble concentrating on things, such as reading the newspaper or watching television: not at all 8. Moving or speaking so slowly that other people could have noticed. Or the opposite - being so fidgety or restless that you have been moving around a lot more than usual: not at all 9. Thoughts that you would be better off or of hurting yourself in some way: not at all Total score: 0 Depression Screening Interpretation: Negative Depression Screening Done: Yes 16586 - PHQ-9 Billing: Yes Source: Developed by Drs. Az Posada, Karen Sexton, Brandin Gomes and colleagues, with an educational rebecca from [employer]. Thrive Questionnaire Date Thrive assessed: 03/13/25 I am a: Patient What is your living situation today?: I have a steady place to live Within the past 12 months, did the food you bought not last and you didn't have the money to get more?: Never true Within the past 12 months, did you worry whether your food would run out before you got money to buy more?: Never true Do you have trouble paying for medicines?: No Do you have trouble getting transportation to medical appointments?: No Do you have trouble paying your heating and electricity bill?: No Do you have trouble taking care of your child, family member or friend?: No Do you have trouble with day-to-day activities such as bathing, preparing meals, shopping, managing finances, etc.?: No Are you currently unemployed and looking for a job?: No Are you interested in more education?: No Please select the resources that you would like help with: None Currently or been in a relationship where the following occur: No concerns reported THRIVE Score: 0 SY-7 AMB Questionnaire SY-7 Date SY - 7 assessed: 03/13/25 Feeling nervous, anxious, or on edge: 0 = Not at all Not being able to stop or control worryin = Not at all Worrying too much about different things: 0 = Not at all Trouble relaxin = Not at all Being so restless that it is hard to sit still: 0 = Not at all Becoming easily annoyed or irritable: 0 = Not at all Feeling afraid as if something awful might happen: 0 = Not at all Total SY-7 score (0-4 normal; 5-9 mild; 10-14 moderate; 15-21 severe): 0 Source: Developed by Drs. Az Posada, Karen Sexton, Brandin Gomes and colleagues, with an educational rebecca from [employer]. SY-7 Assessment Billing SY-7 Assessment Tool: SY-7 Assessment 12700 Review of Systems Const Denies chills, Denies fatigue, Denies fever(s), Denies headache(s) and Denies weakness ENT Denies dizziness and Denies headache(s) Card Denies dyspnea Resp Denies cough, Denies dyspnea, Denies wheezing and Denies other (shortness of breath) Musc Denies numbness and Denies tingling Neuro Denies dizziness, Denies headache(s), Denies numbness, Denies tingling and Denies weakness Psych Denies anxiety and Denies depression Endo Denies fatigue Aller/Immun Denies wheezing Physical exam (Primary Care) Vital Signs: Last Vital Signs Temp 96.6 F L 03/13/25 08:39 Pulse 65 03/13/25 08:39 Resp 12 03/13/25 08:39 BP 130/60 03/13/25 08:39 Pulse Ox 98 03/13/25 08:39 Oxygen Delivery Method Room Air 03/13/25 08:39 BMI result Body Mass Index 25.7 Tobacco/Smoking Status: Tobacco use Status Tobacco use date assessed 03/13/25 03/13/25 08:38 Patient Tobacco Use Status Former Tobacco user 03/13/25 08:36 e-Cigarette/Vaping Use Never Used 03/13/25 08:36 PHQ-9: PHQ-9 Score PHQ-9: Total score 0 03/13/25 08:36 Depression Screening Interpretation: Negative Thrive Assessment: Date of Thrive Assessment Date Thrive assessed 03/13/25 03/13/25 08:36 Currently or been in a relationship where the following occur: No concerns r eported Const General: well developed; No acute distress Nutritional Appearance: well nourished Orientation/consciousness: patient oriented x3 HENMT Head: Yes normocephalic and Yes atraumatic Eyes General: appearance normal, both eyes and all related structures Pupils: Equal, round and reactive pupils present EOM: EOMs intact bilaterally Resp Effort & Inspection: normal respiratory effort Auscultation: clear to auscultation bilaterally Cardio Rate: regular rate Rhythm: regular rhythm Heart sounds: S1 normal heart sound present, S2 normal heart sound present, no gallops, no murmurs and no rubs Neuro General: patient oriented x3 and gait normal Cranial nerves: Yes Equal, round and reactive pupils present Psych Affect: normal affect Results AMB Hemoglobin A1c AMB Hemoglobin A1c 5.5 % Last Edit by Clyde Ann MA on 03/13/25 08:58 Coding Level of Care Code Est Pt Level 4 (14527) Diagnoses Essential hypertension I10 Pre-diabetes R73.03 Hypothyroid E03.9 Additional Codes SY-7 Assessment Billing - SY-7 Assessment Tool: SY-7 Assessment 18948 ([id number]) PHQ-9 - 37731 - PHQ-9 Billing: Yes ([id number]) Assessment & Plan Assessment & Plan (1) Essential hypertension: Code(s): I10 - Essential (primary) hypertension Category: Medical Plan: Blood pressure is controlled. Goal is less than 140/90 Continue current medication (2) Pre-diabetes: Code(s): R73.03 - Prediabetes Category: Medical Plan: Most recent random glucose was within normal range. A1c: 5.5% which is within top of normal range Continue working on a diet low in sugars and starches (3) Hypothyroid: Code(s): E03.9 - Hypothyroidism, unspecified Category: Medical Plan: Had increased levothyroxine from 37.5 mcg to 50 mcg daily Thyroid hormone levels all within normal range now Continuing current medication Orders: Orders AMB Hemoglobin A1c Today Z13.9 - Encounter for screening, unspecified Medications: Refilled butalbital-acetaminophen 50-325 mg 20 tabs per 30 days. MassPat verified. Partial refill upon request. 1 tab PO DAILY PRN 20 tabs 1RF headache 30 days
[2025-03-13 08:39] VITALS: BP 130/60; PULSE 65; RESP 12; TEMP 35.9; O2SAT 98; BMI 25.7
--- OUTSIDE RECORDS SUMMARY | 2025-03-13 08:52 | XMS_ITS | Encounter Summary ---
Author Organization [facility] Address [address] [facility] [address] [place] [address] Phone Care Team Providers Care Telehealth Nurse Educator Name Role Phone Gabriele Joiner MD Primary Care Provider Encounter Details Date Type Department Care Team (Late st Contact Info) Description 05/19/2023 Ancillary Orders [facility], X-Ray - [address] [address] Jamila Toney PA [address] [place] [address] [email or web address] Low back pain, unspecified back pain laterality, [...] present documented in this encounter Care Teams Telehealth Nurse Educator Relationship Specialty Start Date End Date Gabriele Joiner MD [address] [place] [address] PCP - General Family Medicine 06/19/22 documented as of this encounter Additional Source Comments The information contained in this document represents components of the legal health record. It is not the complete legal health record.[facility]
--- OUTSIDE RECORDS SUMMARY | 2025-03-13 08:52 | XMS_ITS | Patient Health Record ---
Author Organization [facility] Address [address] [place] [address] Care Team Providers Care Information Technology Project Manager Name Role Phone Gabriele Joiner Primary Care Provider Unavailab Az Reynoso Unavailable [phone] Reason For Referral No Information Medications Medication [...] Problem Screening for malignant neoplasm of colon (474682115) Encounter for screening for malignant neoplasm of colon (Z12.11) Active confirmed Problem History of adenomatous polyp of colon (048275064) History of adenomatous polyp of colon (Z86.010) Active confirmed Problem Preprocedural examination (939272369524507) Preprocedural examination (Z01.818) Active confirmed Plan Of Treatment Pending Test Test Name Order Date Pathology 09/19/2020 Future Test Test Name Order Date COLONOSCOPY 05/31/2014 COLONOSCOPY 08/30/2020 Next Appt Details Provider Name:Az Parrish , 06/27/2025 09:50:00 AM, [address] [facility] [address], [address], [place], [address], Insurance Providers Payer Name Payer Address Payer Phone Subscriber Number Group Number Insured Name Patient Relationship to Insured Coverage Start Date Coverage End Date MEDICARE OF [place] [address] [place] [address] [id number] SCHUYLER CORNELL Self - patient is the insured [facility] [address] [place] [phone] [id number] ANETA SCHUYLER Self - patient is the insured Medical (General) History Medical History History ICD Code Colonoscopy 04-01-2004--hyperplastic poly ps, small internal hemorrhoids Denies [place],DM,CVA,Lung disease,renal dise ase BPH Colonoscopy 06/2014 with a small tubular adenoma HTN Hypothyroidism Surgical History Surgery Date(Month/Year) Broken elbow x 2 Vasectomy
== END 2025-03-13 09:05 | disposition home or self-care (01) ==
LOC: HO.HMCFM 08:34
PROVIDERS: PCP Family Medicine; Visit Provider Family Medicine
DX: I10 Essential (primary) hypertension (principal); R73.03 Prediabetes; E03.9 Hypothyroidism, unspecified; Z13.9 Encounter for screening, unspecified

== ENCOUNTER → 2025-03-13 08:34 | Outpatient (BNVA) | payer MEDICARE, OTHER, SELFPAY | PROVIDERS: PCP Family Medicine; Visit Provider Family Medicine | DX: I10 Essential (primary) hypertension (principal); E03.9 Hypothyroidism, unspecified; R73.03 Prediabetes; Z13.31 Encounter for screening for depression | CPT/HCPCS: 83036; 96127; 99212 ==

== ENCOUNTER 2025-03-15 09:05 | Outpatient (REF) | payer SELFPAY ==
--- OUTSIDE RECORDS SUMMARY | 2025-03-15 09:27 | XMS_ITS | Encounter Summary ---
Author Organization [facility] Address [address] [facility] [address] [place] [address] Phone Care Team Providers Care Sound System Installer Name Role Phone Gabriele Joiner MD Primary Care Provider Encounter Details Date Type Department Care Team (Late st Contact Info) Description 05/19/2023 Ancillary Orders [facility], X-Ray - [address] [address] Jamila Toney PA [address] [place] [address] [email or web address] Low back pain, unspecified back pain laterality, [...] present documented in this encounter Care Teams Sound System Installer Relationship Specialty Start Date End Date Gabriele Joiner MD [address] [place] [address] PCP - General Family Medicine 06/19/22 documented as of this encounter Additional Source Comments The information contained in this document represents components of the legal health record. It is not the complete legal health record.[facility]
== END 2025-03-15 09:06 | disposition home or self-care (01) ==
LOC: HO.HAP 09:05
PROVIDERS: Visit Provider Family Medicine
DX: Z13.89 Encounter for screening for other disorder (principal)

== ENCOUNTER 2025-03-17 14:24 | Outpatient (REF) | payer SELFPAY ==
--- OUTSIDE RECORDS SUMMARY | 2025-03-17 14:27 | XMS_ITS | Encounter Summary ---
Author Organization [facility] Address [address] [facility] [address] [place] [address] Phone Care Team Providers Care Job Counselor Name Role Phone Gabriele Joiner MD Primary Care Provider Encounter Details Date Type Department Care Team (Late st Contact Info) Description 05/19/2023 Ancillary Orders [facility], X-Ray - [address] [address] Jamila Toney PA [address] [place] [address] ([employer]) OLX Low back pain, unspecified back pain laterality, [...] present documented in this encounter Care Teams Job Counselor Relationship Specialty Start Date End Date Gabriele Joiner MD [address] [place] [address] PCP - General Family Medicine 06/19/22 documented as of this encounter Additional Source Comments The information contained in this document represents components of the legal health record. It is not the complete legal health record.[facility]
--- OUTSIDE RECORDS SUMMARY | 2025-03-17 14:27 | XMS_ITS | Patient Health Record ---
Author Organization [facility] Address [address] [place] [address] Care Team Providers Care Hotel Lobby Concierge Name Role Phone Gabriele Joiner Primary Care Provider Unavailab Az Reynoso Unavailable [phone] Reason For Referral No Information Medications Medication [...] Problem Screening for malignant neoplasm of colon (255026890) Encounter for screening for malignant neoplasm of colon (Z12.11) Active confirmed Problem History of adenomatous polyp of colon (562012685) History of adenomatous polyp of colon (Z86.010) Active confirmed Problem Preprocedural examination (208897540981921) Preprocedural examination (Z01.818) Active confirmed Plan Of Treatment Pending Test Test Name Order Date Pathology 09/19/2020 Future Test Test Name Order Date COLONOSCOPY 05/31/2014 COLONOSCOPY 08/30/2020 Next Appt Details Provider Name:Az Parrish , 06/27/2025 09:50:00 AM, [address], [address], [place], [address], Insurance Providers Payer Name Payer Address Payer Phone Subscriber Number Group Number Insured Name Patient Relationship to Insured Coverage Start Date Coverage End Date MEDICARE OF [place] [address] [place] [address] [id number] SCHUYLER CORNELL Self - patient is the insured [facility] [address] [place] [address] [phone] [id number] ANETA SCHUYLER Self - patient is the insured Medical (General) History Medical History History ICD Code Colonoscopy 04-01-2004--hyperplastic poly ps, small internal hemorrhoids Denies [place],DM,CVA,Lung disease,renal dise ase BPH Colonoscopy 06/2014 with a small tubular adenoma HTN Hypothyroidism Surgical History Surgery Date(Month/Year) Broken elbow x 2 Vasectomy
== END 2025-03-17 14:25 | disposition home or self-care (01) ==
LOC: HO.HAP 14:24
DX: Z13.89 Encounter for screening for other disorder (principal)

== ENCOUNTER 2025-03-30 15:28 | Outpatient (REF) | payer SELFPAY ==
--- OUTSIDE RECORDS SUMMARY | 2025-03-30 15:56 | XMS_ITS | Encounter Summary ---
Author Organization [facility] Address [address] [facility] [address] [place] [address] Phone Care Team Providers Care Home Furnishings Sales Representative Name Role Phone Gabriele Joiner MD Primary Care Provider Encounter Details Date Type Department Care Team (Late st Contact Info) Description 05/19/2023 Ancillary Orders [facility], X-Ray - [address] [address] Jamila Toney PA [address] [place] [address] [email or web address] Low back pain, unspecified back pain laterality, [...] present documented in this encounter Care Teams Home Furnishings Sales Representative Relationship Specialty Start Date End Date Gabriele Joiner MD [address] [place] [address] PCP - General Family Medicine 06/19/22 documented as of this encounter Additional Source Comments The information contained in this document represents components of the legal health record. It is not the complete legal health record.[facility]
--- OUTSIDE RECORDS SUMMARY | 2025-03-30 15:56 | XMS_ITS | Clinical Summary ---
Author Organization [facility] Address [address] [facility] [address] [place] [address] Phone Care Team Providers Care Quarry Supervisor Dimension Stone Name Role Phone Gabriele Joiner MD Primary Care Provider Social History Tobacco Use Types Packs/Day Years [...] on file Sexual Orientation Not on file Plan of Treatment Health Maintenance Due Date Last Done Comments Adult Td,Tdap Booster 1953 LIPID PANEL 1953 DEPRESSION SCREENING 1965 SMOKING Hx and SMOKELESS TOB ACCO SCREENING 1966 HEPATITIS C SCREENING 1971 COLOGUARD 1998 COLONOSCOPY 1998 COLORECTAL CANCER SCREENING 1998 FIT TEST 1998 FOBT 1998 SIGMOIDOSCOPY 1998 VIRTUAL COLONOSCOPY 1998 PNEUMOCOCCAL VACCINES (50+ y ears) (1 of 1 - PCV) 2003 ZOSTER VACCINES (1 of 2) 2003 COVID-19 VACCINE ( - 2023-2 5 season) 2024 RSV VACCINE (1 - 1-dose 75+ series) 2028 HEPATITIS A VACCINES Aged Out No long er eligible based on patient's age to complete this topic HIB VACCINES Aged Out No longer eligi ble based on patient's age to complete this topic MENINGOCOCCAL VACCINES (ACWY) Aged Out No longer eligible based on patient's age to complete this topic MENINGOCOCCAL VACCINES (B) Aged Out N o longer eligible based on patient's age to complete this topic Medical Devices Not on file Insurance MEDICARE PART A & B [facility] MEDICARE SUPPLEMENT MEDICARE PART A & B MEDICARE SUPPLEMENT MEDICARE PART A & B MEDICARE SUPPLEMENT MEDICARE PART A & B MEDICARE SUPPLEMENT MEDICARE SUPPLEMENT Member Subscriber Plan / Payer ( fective 2018-Present) Name:Daniel Sifuentes Member ID:[id number] Relation to Subscriber:Self Name:Daniel Sifuentes Subscriber ID:[id number] Payer ID:[id number] Group ID:Not on file Type:Medicare Address: [place] [address] MEDICARE SUPPLEMENT MEDICARE PART A & B MEDICARE SUPPLEMENT MEDICARE PART A & B Member Subscriber Plan / Payer ( fective 2018-Present) Name:Daniel Sifuentes Member ID:[id number] Relation to Subscriber:Self Name:Daniel Sifuentes Subscriber ID:[id number] Payer ID:[id number] Group ID:Not on file Type:Medicare Address: [employer] [address] [place] [address] [place] [address] MEDICARE SUPPLEMENT MEDICARE PART A & B [facility] MEDICARE SUPPLEMENT Care Teams Quarry Supervisor Dimension Stone Relationship Specialty Start Date End Date Gabriele Joiner MD [address] [place] [address] PCP - General Family Medicine 06/19/22 Additional Source Comments The information contained in this document represents components of the legal health record. It is not the complete legal health record.[facility]
--- OUTSIDE RECORDS SUMMARY | 2025-03-30 15:56 | XMS_ITS | Patient Health Record ---
Author Organization [facility] Address [address] [place] [address] Care Team Providers Care Industrial Coffee Grinder Name Role Phone Gabriele Joiner Primary Care Provider Unavailab Az Reynoso Unavailable [phone] Reason For Referral No Information Medications Medication [...] Problem Screening for malignant neoplasm of colon (649224234) Encounter for screening for malignant neoplasm of colon (Z12.11) Active confirmed Problem History of adenomatous polyp of colon (Z86.010) Active confirmed Problem Preprocedural examination (657967137928049) Preprocedural examination (Z01.818) Active confirmed Plan Of Treatment Pending Test Test Name Order Date Pathology 09/19/2020 Future Test Test Name Order Date COLONOSCOPY 05/31/2014 COLONOSCOPY 08/30/2020 Next Appt Details Provider Name:Az Parrish , 06/27/2025 09:50:00 AM, [address] [facility], [address], [place], [address], Insurance Providers Payer Name Payer Address Payer Phone Subscriber Number Group Number Insured Name Patient Relationship to Insured Coverage Start Date Coverage End Date MEDICARE OF [place] [address] [place] [address] [id number] CORNELLSCHUYLER YOUNG Self - patient is the insured [facility] [address] [place] [address] [phone] [id number] SCHUYLER CORNELL Self - patient is the insured Medical (General) History Medical History History ICD Code Colonoscopy 04-01-2004--hyperplastic poly ps, small internal hemorrhoids Denies [place],DM,CVA,Lung disease,renal dise ase BPH Colonoscopy 06/2014 with a small tubular adenoma HTN Hypothyroidism Surgical History Surgery Date(Month/Year) Broken elbow x 2 Vasectomy
== END 2025-03-30 15:29 | disposition home or self-care (01) ==
LOC: HO.HAP 15:28
PROVIDERS: Visit Provider Family Medicine
DX: Z46.1 Encounter for fitting and adjustment of hearing aid (principal); H90.3 Sensorineural hearing loss, bilateral; H93.13 Tinnitus, bilateral
CPT/HCPCS: 92593

== ENCOUNTER 2025-07-14 08:53 | Outpatient (REF) | payer OTHER, MEDICARE, SELFPAY ==
[2025-07-14 11:38] LABS: Alanine Aminotransferase 33 U/L (0-40); Albumin Level 4.5 g/dL (3.5-5.0); Alkaline Phosphatase 68 U/L (39-117); Anion Gap 9 (12-20); Aspartate Amino Transferase 29 U/L (5-37); Blood Urea Nitrogen 23 mg/dL (9-16); Calcium 9.3 mg/dL (8.4-10.2); Carbon Dioxide 29 mmol/L (22-29); Chloride 106 mmol/L (96-108); Estimated Glomerular Filt Rate > 60; Potassium 4.9 mmol/L (3.3-5.1); Sodium 139 mmol/L (135-145); Total Protein 6.9 g/dL (6.5-8.0)
[2025-07-14 11:44] LABS: Free T4 (Free Thyroxine) 0.97 ng/dL (0.71-1.85); Thyroid Stimulating Hormone 3.83 uIU/mL (0.32-4.0)
== END 2025-07-14 08:54 | disposition home or self-care (01) ==
LOC: HO.WFDLDS 08:53
PROVIDERS: Visit Provider Family Medicine
DX: Z00.00 Encounter for general adult medical examination without abnormal findings (principal); E03.9 Hypothyroidism, unspecified
CPT/HCPCS: 36415; 80053; 84439; 84443; 84480

== ENCOUNTER 2025-07-17 08:35 | Outpatient (AMB) | payer MEDICARE, OTHER, SELFPAY ==
--- NOTE | 2025-07-17 08:41 | A.OFFPC_ITS ---
Vital Signs 07/17/25 08:42 Height 5 ft 11 in Weight 189 lb 8 oz BMI 26.4 BP 136/76 Blood Pressure Location Rt brachial Position Sitting Pulse 71 Pulse Source Pulse Oximeter Pulse Oximetry (%) 96 Oxygen Delivery Method Room Air Intake Visit Reasons: f/u htn, hypothyroidism Allergies bee pollen (BEE STINGS) Allergy (Unknown, Verified 07/17/25 08:43) Shortness of Breath Medication List - Last Reconciled 07/17/25 by Gabriele Joiner MD butalbital-acetaminophen 50-325 mg 1 tab PO DAILY PRN 30 days comp.stocking,thigh,long,large As directed epinephrine (EpiPen 2-Catrachito) 0.3 mg (0.3 mL) IM Q4H PRN 30 days fexofenadine (Vanda Allergy) 180 mg PO DAILY finasteride 2.5 mg (1/2 x 5 mg) PO DAILY 90 days levothyroxine 50 mcg PO DAILY 90 days lisinopril 5 mg PO DAILY 90 days tamsulosin 0.8 mg (2 x 0.4 mg) PO BEDTIME 90 days topiramate 25 mg PO DAILY 30 days tramadol 50 mg PO BID PRN 7 days Tobacco use date assessed: 07/17/25 Fall risk assessment: No Falls in past year Last assessed Fall Risk: 07/17/25 Dental Screening Dental Screen Date: 07/17/25 Did you have a dental visit in the last 12 months?: Yes Did you have a dental problem in the last 6 months where you did not have access to dental care?: No Was dental information given to patient?: Patient has dentist HPI f/u htn, hypothyroidism HPI Details 69 y/o male presents to f/u HTN, hypothy roidis. BP today 136/76, 71p. He is on lisinopril 5mg daily. Labs drawn 07/14/25. Reviewed labs with pt. Fasting glucose 108. Hx prediabetes. Thyroid levels within normal range. He is on levothyroxine 50 mcg daily. Reports brief dizzy spells this month. A1c today 5.6%. HPI Comments History of Present Illness Details Documentation assistance for Gabriele Joiner MD, was provided by Kristian Rivas,? Associate Professor Of Geography on 07/17/2025 at 8:58 AM EST. I, Dr. Joiner, have read, observ ed, and verified documentation. [facility] Medical History Back pain Hypothyroid Hypercholesteremia HTN (hypertension) Elevated PSA Surgical History History of colonoscopy History of elbow surgery History of surgery [place] teeth removed Family History Father Throat cancer Mother Cancer of anus Brother Lung cancer Prostate cancer Sister Lung cancer Sister No problems noted. Son No problems noted. Son No problems noted. Other Mental health disorder Substance use disorder Social History Housing: House Alcohol intake: current Alcohol intake frequency: holidays/special occasions only Patient Tobacco Use Status: Former Tobacco user e-Cigarette/Vaping Use: Never Used Second Hand Smoke Exposure: No service: No Current occupational status: retired Current occupational exposures/hazards: No Cognitive needs: No Hearing needs: No Vision needs: Yes (Glasses) Questionnaire PHQ-9 Over the last 2 weeks, how often have you been bothered by any of the following problems? 1. Little interest or pleasure in doing things: not at all 2. Feeling down, depressed, or hopeless: not at all 3. Trouble falling or staying asleep, or sleeping too much: not at all 4. Feeling tired or having little energy: not at all 5. Poor appetite or overeating: not at all 6. Feeling bad about yourself - or that you are a failure or have let yourself or your family down: not at all 7. Trouble concentrating on things, such as reading the newspaper or watching television: not at all 8. Moving or speaking so slowly that other people could have noticed. Or the opposite - being so fidgety or restless that you have been moving around a lot more than usual: not at all 9. Thoughts that you would be better off or of hurting yourself in some way: not at all Total score: 0 Depression Screening Interpretation: Negative Depression Screening Done: Yes Source: Developed by Drs. Az Posada, Karen Sexton, Brandin Gomes and colleagues, with an educational rebecca from [employer]. Thrive Questionnaire Date Thrive assessed: 09/06/24 I am a: Patient What is your living situation today?: I have a steady place to live Within the past 12 months, did the food you bought not last and you didn't have the money to get more?: Never true Within the past 12 months, did you worry whether your food would run out before you got money to buy more?: Never true Do you have trouble paying for medicines?: No Do you have trouble getting transportation to medical appointments?: No Do you have trouble paying your heating and electricity bill?: No Do you have trouble taking care of your child, family member or friend?: No Do you have trouble with day-to-day activities such as bathing, preparing meals, shopping, managing finances, etc.?: No Are you currently unemployed and looking for a job?: No Are you interested in more education?: No Please select the resources that you would like help with: None Currently or been in a relationship where the following occur: No concerns reported THRIVE Score: 0 AUDIT C Alcohol Use Questionnaire (AUDIT-C) 1. How often do you have a drink containing alcohol?: 4 or more times a week 2. How many drinks containing alcohol do you have on a typical day when you are drinking?: 1 or 2 3. How often do you have six or more drinks on one occasion?: Never Total Score: 4 Score Reviewed/Action Taken: Yes SY-7 AMB Questionnaire SY-7 Date SY - 7 assessed: 03/13/25 Feeling nervous, anxious, or on edge: 0 = Not at all Not being able to stop or control worryin = Not at all Worrying too much about different things: 0 = Not at all Trouble relaxin = Not at all Being so restless that it is hard to sit still: 0 = Not at all Becoming easily annoyed or irritable: 0 = Not at all Feeling afraid as if something awful might happen: 0 = Not at all Total SY-7 score (0-4 normal; 5-9 mild; 10-14 moderate; 15-21 severe): 0 Source: Developed by Drs. Az Posada, Karen Sexton, Brandin Gomes and colleagues, with an educational rebecca from [employer]. Review of Systems Const Denies chills, Denies fatigue, Denies fever(s), Denies headache(s) and Denies weakness ENT Denies dizziness and Denies headache(s) Card Denies dyspnea Resp Denies cough, Denies dyspnea, Denies wheezing and Denies other (shortness of breath) Musc Denies numbness and Denies tingling Neuro Denies dizziness, Denies headache(s), Denies numbness, Denies tingling and Denies weakness Psych Denies anxiety and Denies depression Endo Denies fatigue Aller/Immun Denies wheezing Physical exam (Primary Care) Vital Signs: Last Vital Signs Pulse 71 07/17/25 08:42 BP 136/76 07/17/25 08:42 Pulse Ox 96 07/17/25 08:42 Oxygen Delivery Method Room Air 07/17/25 08:42 BMI result Body Mass Index 26.4 Tobacco/Smoking Status: Tobacco use Status Tobacco use date assessed 07/17/25 07/17/25 08:44 Patient Tobacco Use Status Former Tobacco user 07/17/25 08:44 e-Cigarette/Vaping Use Never Used 07/17/25 08:44 PHQ-9: PHQ-9 Score PHQ-9: Total score 0 07/17/25 08:44 Depression Screening Interpretation: Negative Thrive Assessment: Date of Thrive Assessment Date Thrive assessed 09/06/24 07/17/25 08:44 Currently or been in a relationship where the following occur: No concerns reported Const General: well developed; No acute distress Nutritional Appearance: well nourished Orientation/consciousness: patient oriented x3 HENMT Head: Yes normocephalic and Yes atraumatic Eyes General: appearance normal, both eyes and all related structures Pupils: Equal, round and reactive pupils present EOM: EOMs intact bilaterally Resp Effort & Inspection: normal respiratory effort Auscultation: clear to auscultation bilaterally Cardio Rate: regular rate Rhythm: regular rhythm Heart sounds: S1 normal heart sound present, S2 normal heart sound present, no gallops, no murmurs and no rubs Neuro General: patient oriented x3 and gait normal Cranial nerves: Yes Equal, round and reactive pupils present Psych Affect: normal affect Results AMB Hemoglobin A1c AMB Hemoglobin A1c 5.6 % Last Edit by Lyly Khan CMA on 07/17/25 09:07 Coding Level of Care Code Est Pt Level 4 (67389) Diagnoses Essential hypertension I10 Pre-diabetes R73.03 Hypothyroidism (acquired) E03.9 Dizziness R42 Assessment & Plan Assessment & Plan (1) Essential hypertension: Code(s): I10 - Essential (primary) hypertension Category: Medical Plan: Blood pressure is controlled. Goal is less than 140/90 Continue current medication Work on a diet low in salt/sodium Encouraged weight loss and exercise (2) Pre-diabetes: Code(s): R73.03 - Prediabetes Category: Medical Plan: A1c was 5.5% at last check and 5.6% today. Recent fasting blood sugar is again above 100 Continue working at a diet low in sugars and starches (3) Hypothyroidism (acquired): Code(s): E03.9 - Hypothyroidism, unspecified Category: Medical Plan: Had increased his levothyroxine at prior visit Thyroid hormone levels now remain in normal range Continue current medication (4) Dizziness: Code(s): R42 - Dizziness and giddiness Category: Medical Plan: EKG: Normal sinus rhythm, normal axis, no hypertrophy, no ST-T-wave changes Symptoms consistent with micturition syncope Hydrate well but taper off after bedtime Empty bladder well before bed Sit to urinate if you get up at night Squeeze muscles of feet, calves, and legs to bring blood up from lower extremities Lie down if feeling faint He will let me know if symptoms persist Orders: Orders Comprehensive [place]. Panel Fast Today Z00.00 - Encounter for general adult medical examination without abnormal findings Complete Blood Count Auto Diff Today Z00.00 - Encounter for general adult medical examination without abnormal findings Lipid Panel Today Z00.00 - Encounter for general adult medical examination without abnormal findings Microalbumin, Random (w Creat) Today I10 - Essential (primary) hypertension Prostate Specific Antigen Scr Today Z12.5 - Encounter for screening for malignant neoplasm of prostate UA CC w/rflx Micro + Cult Today Z00.00 - Encounter for general adult medical examination without abnormal findings Thyroid Stimulating Hormone Today E03.9 - Hypothyroidism, unspecified AMB Hemoglobin A1c Today Z13.9 - Encounter for screening, unspecified Triiodothyronine T3 Total Today E03.9 - Hypothyroidism, unspecified Free T4 (Free Thyroxine) Today E03.9 - Hypothyroidism, unspecified
[2025-07-17 08:42] VITALS: BP 136/76; PULSE 71; O2SAT 96; BMI 26.4
== END 2025-07-17 09:13 | disposition home or self-care (01) ==
LOC: HO.HMCFM 08:36
PROVIDERS: PCP Family Medicine; Visit Provider Family Medicine
DX: I10 Essential (primary) hypertension (principal); R73.03 Prediabetes; E03.9 Hypothyroidism, unspecified; R42 Dizziness and giddiness; Z13.9 Encounter for screening, unspecified

== ENCOUNTER → 2025-07-17 08:35 | Outpatient (BNVA) | payer MEDICARE, OTHER, SELFPAY | PROVIDERS: PCP Family Medicine; Visit Provider Family Medicine | DX: I10 Essential (primary) hypertension (principal); R73.03 Prediabetes; E03.9 Hypothyroidism, unspecified; R42 Dizziness and giddiness; Z13.31 Encounter for screening for depression | CPT/HCPCS: 83036; 96127; 99212 ==